=== PATIENT | female | born 1940 | race Caucasian/White ===

== ENCOUNTER 2018-07-06 08:20 | Observation (INO) ==
--- NOTE | 2018-07-06 08:35 | ED ---
HPI General Chief Complaint: Chest Pain Stated Complaint: chest pain Time Seen by Provider: 07/06/18 08:32 Source: patient Mode of arrival: ambulatory Limitations: no limitations History of Present Illness HPI narrative: Patient complains of ongoing intermittent chest pain associated with shortness of breath over the past couple of weeks, patient also has a history of atrial fibrillation. Patient also complains of intermittent dizzy and weakness she is generalized and nonlateralizing.... Primary CARE physicians Dr. Prasanna Olvera needlemaker: dr miranda Past medical history significant for depression, hypercholesterolemia, hypothyroidism, hysterectomy, cervical cancer, atrial fibrillation, hernia repair MD complaint: Reports chest pain STEMI Alert: No Related Data Home Medications Medication Instructions Recorded Confirmed apixaban [Eliquis] 5 mg PO BID 07/06/18 07/06/18 aspirin [Aspir-81] 81 mg PO DAILY 07/06/18 07/06/18 celecoxib 200 mg PO DAILY 07/06/18 07/06/18 flecainide 50 mg PO Q12H 07/06/18 07/06/18 irbesartan 300 mg PO DAILY 07/06/18 07/06/18 levothyroxine 75 mcg PO DAILY 07/06/18 07/06/18 metoprolol tartrate 25 mg PO BID 07/06/18 07/06/18 rosuvastatin 20 mg PO DAILY 07/06/18 07/06/18 sertraline 100 mg PO DAILY 07/06/18 07/06/18 spironolactone 25 mg PO DAILY 07/06/18 07/06/18 Allergies Allergy/AdvReac Type Severity Reaction Status Date / Time lisinopril Allergy Edema, Verified 07/06/18 08:32 Localized Penicillins Allergy Hives Verified 07/06/18 08:32 Review of Systems ROS: all other systems reviewed are negative PMFSH History History Provided By: Patient and Family Member Medical History Medical History Afib (Acute) Cervical cancer (Acute) Depression (Acute) H/O: hysterectomy (Acute) Hypercholesteremia (Acute) Hypothyroid (Acute) Surgical History Surgical History H/O hernia repair (Acute) History of hip replacement (Acute) Social History Social History Substance History: No History of Abuse Second Hand Smoke Exposure: No Smoking Status: Never smoker How Often Do You Have a Drink Containing Alcohol: 2 to 4 times a month Recent Travel in [facility] within the Last 8 Weeks: No Recent Out of Country Travel within the Last 8 Weeks: No Exam Narrative Exam Narrative: GENERAL: Well-nourished, well-developed patient in no apparent distress. SKIN: Warm and dry. HEAD: Atraumatic. Normocephalic. EYES: Pupils equal and round. No scleral icterus. No injection or drainage. ENT: No nasal bleeding or discharge. Mucous membranes pink and moist. NECK: Trachea midline. No JVD. CARDIOVASCULAR: Regular rate but irregularly irregular rhythm. no rubs or gallops RESPIRATORY: No accessory muscle use. Clear to auscultation. Breath sounds equal bilaterally. GASTROINTESTINAL: Abdomen soft, non-tender, nondistended. No rebound or guarding MUSCULOSKELETAL: Extremities without clubbing, cyanosis, or edema. No obvious deformities. NEUROLOGICAL: Awake and alert. No obvious cranial nerve deficits. Motor grossly within normal limits. Five out of 5 muscle strength in the arms and legs. Normal speech. PSYCHIATRIC: Appropriate mood and affect; insight and judgment normal. Course Initial Documented Vital Signs Temperature 98.3 F 07/06/18 08:23 Pulse Rate 81 07/06/18 08:23 Respiratory Rate 22 07/06/18 08:23 Blood Pressure 140/84 07/06/18 08:23 Pulse Oximetry 98 07/06/18 08:23 Last Documented Vital Signs Temperature 98.3 F 07/06/18 08:23 Pulse Rate 68 07/06/18 08:38 Respiratory Rate 24 07/06/18 08:38 Blood Pressure 157/78 H 07/06/18 08:38 Pulse Oximetry 97 07/06/18 08:38 Medical Decision Making MDM Narrative Medical decision making narrative: No leukocytosis, no anemia, no abnormal platelet count, however there is some neutrophilia left shift of 80% Evaluation profile within normal limits, however by history patient is on Eliquis Electrolytes are all within normal limits with the exception of a BUN of 44 creatinine 1.6 So far normal bilirubin and alk phos alkaline phosphatase. Beta natruretic peptide elevated at 1082 consistent with some degree of either cardiomyopathy or cardiomegaly chest x-ray read by Radiologist as negative examination Medical Screen Exam Complete: Yes Emergency Medical Condition: Yes Lab Data Result diagrams: 07/06/18 08:40 07/06/18 08:40 Lab Results 07/06/18 07/06/18 07/06/18 Range/Units 08:40 08:40 08:40 WBC 9.5 (4.0-11.0) th/mm3 RBC 3.87 L (4.00-5.30) mil/mm3 Hgb 12.0 (11.6-15.3) gm/dL Hct 36.1 (35.0-46.0) % MCV 93.3 (80.0-100.0) fL MCH 31.0 (27.0-34.0) pg MCHC 33.2 (32.0-36.0) % RDW 14.1 (11.6-17.2) % Plt Count 295 (150-450) th/mm3 MPV 8.2 (7.0-11.0) fL Neut % (Auto) 79.5 H (16.0-70.0) % Lymph % (Auto) 11.7 (9.0-44.0) % [place] % (Auto) 6.3 (0.0-8.0) % Eos % (Auto) 1.4 (0.0-4.0) % Baso % (Auto) 1.1 (0.0-2.0) % Neut # (Auto) 7.6 (1.8-7.7) th/mm3 Lymph # (Auto) 1.1 (1.0-4.8) th/mm3 [place] # (Auto) 0.6 (0.0-0.9) th/mm3 Eos # (Auto) 0.1 (0.0-0.4) th/mm3 Baso # (Auto) 0.1 (0.0-0.2) th/mm3 WBC Differential . Differential Comment Auto diff final PT 11.0 (9.8-11.6) sec INR 1.1 Ratio APTT 29.6 (23.4-31.7) sec Sodium 140 (136-145) meq/L Potassium 4.2 (3.5-5.1) meq/L Chloride 110 H (98-107) meq/L Carbon Dioxide 21.3 (21.0-32.0) meq/L Anion Gap 9 (5-15) meq/L BUN 44 H (7-18) mg/dL Creatinine 1.60 H (0.50-1.00) mg/dL Estimated GFR 31 L (>89) mL/min Random Glucose 110 H (74-106) mg/dL Calcium 9.0 (8.5-10.1) mg/dL Total Bilirubin 0.4 (0.2-1.0) mg/dL AST 47 H (15-37) U/L ALT 57 H (10-53) U/L Alkaline Phosphatase 113 (45-117) U/L Total Creatine Kinase 50 (26-192) U/L Troponin I Less than 0.02 L (0.02-0.05) ng/mL B-Natriuretic Peptide (0-100) pg/mL Total Protein 7.7 (6.4-8.2) g/dL Albumin 3.5 (3.4-5.0) g/dL 07/06/18 Range/Units 08:40 WBC (4.0-11.0) th/mm3 RBC (4.00-5.30) mil/mm3 Hgb (11.6-15.3) gm/dL Hct (35.0-46.0) % MCV (80.0-100.0) fL MCH (27.0-34.0) pg MCHC (32.0-36.0) % RDW (11.6-17.2) % Plt Count (150-450) th/mm3 MPV (7.0-11.0) fL Neut % (Auto) (16.0-70.0) % Lymph % (Auto) (9.0-44.0) % [place] % (Auto) (0.0-8.0) % Eos % (Auto) (0.0-4.0) % Baso % (Auto) (0.0-2.0) % Neut # (Auto) (1.8-7.7) th/mm3 Lymph # (Auto) (1.0-4.8) th/mm3 [place] # (Auto) (0.0-0.9) th/mm3 Eos # (Auto) (0.0-0.4) th/mm3 Baso # (Auto) (0.0-0.2) th/mm3 WBC Differential Differential Comment PT (9.8-11.6) sec INR Ratio APTT (23.4-31.7) sec Sodium (136-145) meq/L Potassium (3.5-5.1) meq/L Chloride (98-107) meq/L Carbon Dioxide (21.0-32.0) meq/L Anion Gap (5-15) meq/L BUN (7-18) mg/dL Creatinine (0.50-1.00) mg/dL Estimated GFR (>89) mL/min Random Glucose (74-106) mg/dL Calcium (8.5-10.1) mg/dL Total Bilirubin (0.2-1.0) mg/dL AST (15-37) U/L ALT (10-53) U/L Alkaline Phosphatase (45-117) U/L Total Creatine Kinase (26-192) U/L Troponin I (0.02-0.05) ng/mL B-Natriuretic Peptide 1082 H (0-100) pg/mL Total Protein (6.4-8.2) g/dL Albumin (3.4-5.0) g/dL Imaging Data Radiologist's impression: Chest X-Ray 07/06/18 08:36 CONCLUSION: Negative examination. Discharge Plan Discharge Disposition Patient Disposition: 30 Still Patient Discharge Condition Condition: Stable Discharge Details Diagnosis: Acute acalculous cholecystitis Physicians Team ED Provider: Adalid Hightower Primary Care Provider: Prasanna Snyder Rxs /Orders / Referrals /Forms Prescriptions: No Action celecoxib 200 mg Capsule 200 mg PO DAILY RF: 0 sertraline 100 mg Tablet 100 mg PO DAILY RF: 0 aspirin [Aspir-81] 81 mg Tablet,Delayed Release (Dr/Ec) 81 mg PO DAILY RF: 0 spironolactone 25 mg Tablet 25 mg PO DAILY RF: 0 levothyroxine 75 mcg Tablet 75 mcg PO DAILY RF: 0 flecainide 50 mg Tablet 50 mg PO Q12H RF: 0 irbesartan 300 mg Tablet 300 mg PO DAILY RF: 0 rosuvastatin 20 mg Tablet 20 mg PO DAILY RF: 0 metoprolol tartrate 25 mg Tablet 25 mg PO BID RF: 0 apixaban [Eliquis] 5 mg Tablet 5 mg PO BID RF: 0 Discharge Instructions Patient Printed Instructions: Chest Pain (ED) Status ED Status: With Doctor
[2018-07-06 08:53] LABS: Baso # (Auto) 0.1 th/mm3 (0.0-0.2); Baso % (Auto) 1.1 % (0.0-2.0); Eos # (Auto) 0.1 th/mm3 (0.0-0.4); Eos % (Auto) 1.4 % (0.0-4.0); Hematocrit 36.1 % (35.0-46.0); Lymph # (Auto) 1.1 th/mm3 (1.0-4.8); Lymph % (Auto) 11.7 % (9.0-44.0); Mean Corpuscular HGB Conc 33.2 % (32.0-36.0); Mean Corpuscular Volume 93.3 fL (80.0-100.0); Mean Platelet Volume 8.2 fL (7.0-11.0); Mono # (Auto) 0.6 th/mm3 (0.0-0.9); Mono % (Auto) 6.3 % (0.0-8.0); Neut # (Auto) 7.6 th/mm3 (1.8-7.7); Neut % (Auto) 79.5 % (16.0-70.0); Platelet Count 295 th/mm3 (150-450); Red Blood Count 3.87 mil/mm3 (4.00-5.30); Red Cell Distribution Width 14.1 % (11.6-17.2); White Blood Count 9.5 th/mm3 (4.0-11.0)
[2018-07-06 09:03] LABS: Activated Partial Thrombo Time 29.6 sec (23.4-31.7); INR 1.1 Ratio
--- NOTE | 2018-07-06 09:03 | XR ---
EXAM DATE: 07/06/2018 9:00 AM EST AGE/SEX: 78 years / Female INDICATIONS: Bilateral chest pain. CLINICAL DATA: This is the patient's initial encounter. Patient reports that signs and symptoms have been present for 1 day and indicates a pain score of 5/10. MEDICAL/SURGICAL HISTORY: . Atrial fibrillation. None. COMPARISON: No prior exams available for comparison. FINDINGS: A single AP view of the chest demonstrates the lungs to be symmetrically aerated without evidence of mass, infiltrate or effusion. The cardiomediastinal contours are unremarkable. Osseous structures a re intact. CONCLUSION: Negative examination. Electronically signed by: Lindsay Matamoros MD 07/06/2018 9:02 AM EST
[2018-07-06 09:12] LABS: Alanine Aminotransferase 57 U/L (10-53); Albumin 3.5 g/dL (3.4-5.0); Anion Gap 9 meq/L (5-15); Aspartate Aminotransferase 47 U/L (15-37); Blood Urea Nitrogen 44 mg/dL (7-18); Carbon Dioxide 21.3 meq/L (21.0-32.0); Chloride 110 meq/L (98-107); Glomerular Filtration Rate 31 mL/min (>89); Glucose,Random 110 mg/dL (74-106); Potassium 4.2 meq/L (3.5-5.1); Sodium 140 meq/L (136-145)
[2018-07-06 09:16] LABS: Alkaline Phosphatase 113 U/L (45-117); Total Protein 7.7 g/dL (6.4-8.2)
[2018-07-06 09:17] LABS: Creatine Kinase 50 U/L (26-192)
[2018-07-06] MEDS ORDERED: Levofloxacin 250 mg Premix Inj 250 MG/50 ML PIGGYBACK IV.SIG ONE (09:34)
--- NOTE | 2018-07-06 09:43 | US ---
EXAM DATE: 07/06/2018 9:36 AM EST AGE/SEX: 78 years / Female INDICATIONS: Right upper quadrant pain. CLINICAL DATA: This is the patient's initial encounter. Patient reports that signs and symptoms have been present for 1 week and indicates a pain score of 7/10. MEDICAL/SURGICAL HISTORY: Carcinoma, cervical. Hypercholesterolemia. Hypothyroidism. Atrial fibrillation. Hysterectomy. Hernia repair. Hip replacement. COMPARISON: [facility], CT ABDOMEN AND PELVIS W/O CONTRAST, 10/22/2017. . MEASUREMENTS: Liver:__ 16.1 cm. Common Bile Duct:__ 3mm. FINDINGS: Liver: Normal echotexture without focal lesion or ductal dilatation. Portal Vein: Hepatopedal flow seen in portal vein. Common Duct: No intraluminal mass or stone visualized. Gallbladder: The gallbladder is distended with fluid and demonstrates circumferential wall thickenin g measuring up to 9 mm in thickness. There is a small amount of pericholecystic fluid present. No sto summer are identified within the lumen. Pancreas: The visualized portions are within normal limits Right Kidney: Right kidney appears somewhat small in size measuring 7.7 x 4.3 x 4.5 cm. The cortex a ppears grossly normal in thickness and echogenicity. No evidence of mass, stones or hydronephrosis. Other: None. CONCLUSION: 1. Abnormal appearance of the gallbladder with wall thickening, pericholecystic fluid. No evidence o f stones. Concern is for possible acalculous cholecystitis. Electronically signed by: Lindsay Matamoros MD 07/06/2018 9:42 AM EST
[2018-07-06] MEDS ORDERED: Sod Chloride 0.9% Inj 1,000 ML IV.SIG ONE (10:10)
[2018-07-06] MEDS ORDERED: Acetaminophen 325 MG Tablet PO PRN (10:19)
[2018-07-06] MEDS ORDERED: Bisacodyl 10 MG Supp RECTAL PRN (10:19)
[2018-07-06] MEDS ORDERED: Morphine Sulfate Inj 2 MG/ML Vial IV.PUSH PRN (10:28)
[2018-07-06] MEDS ORDERED: Naloxone Inj 0.4 MG/ML Vial IV.PUSH PRN (10:28)
[2018-07-06] MEDS ORDERED: Morphine Inj 4 MG/ML Vial IV.PUSH PRN (10:28)
--- NOTE | 2018-07-06 11:08 | CT ---
EXAM DATE: 07/06/2018 11:05 AM EST AGE/SEX: 78 years / Female INDICATIONS: Dizziness, Weak CLINICAL DATA: This is the patient's initial encounter. Patient reports that signs and symptoms have been present for 2 weeks and indicates a pain score of 6/10. MEDICAL/SURGICAL HISTORY: Carcinoma, cervical. Hypothyroidism. Atrial Fibrillation Hysterectomy. Hernia repair RADIATION DOSE: 56.35 CTDI (mGy) COMPARISON: No prior exams available for comparison. TECHNIQUE: CT of the head without contrast. Using automated exposure control and adjustment of the mA and/or kV according to patient size, radiation dose was kept as low as reasonably achievable to ob tain optimal diagnostic quality images. DICOM format image data is available electronically for revi ew and comparison. FINDINGS: Cerebrum: The ventricles are normal for age. No evidence of midline shift, mass lesion, hemorrhage or acute infarction. No extraaxial fluid collections are seen. Posterior Fossa: The cerebellum and brainstem are intact. The 4th ventricle is midline. The cerebe llopontine angle is unremarkable. Extracranial: The visualized portion of the orbits is intact. Extensive atherosclerosis identified w ithin the vertebral arteries. Skull: The calvaria is intact. No evidence of skull fracture. CONCLUSION: 1. Age-related changes of the brain without evidence of acute abnormality. There is extensive athero sclerosis identified within the vertebral arteries. . Electronically signed by: Lindsay Matamoros MD 07/06/2018 11:07 AM EST
[2018-07-06] MEDS ORDERED: Metoprolol Tartrate 25 MG Tablet PO SCH (13:00)
--- NOTE | 2018-07-06 13:04 | P.HP ---
History of Present Illness Primary Care Physician: Prasanna Snyder MD Chief Complaint: Abdominal pain History of Present Illness: This is 78 year old female with a history of recent A. fib on Eliquis, hypertension, hyperlipidemia, hypothyroidism, depression and cervical cancer status post surgery. She presents to the emergency room complaining of abdominal pain for the past 2 weeks. She describes an intermittent exertional upper abdominal sharp pain associated with shortness of breath, dizziness, nausea and generalized weakness. She was evaluated by her roving winder and was found to have A. fib and was started on Eliquis, metoprolol and flecainide. Underwent echocardiogram which was reportedly unremarkable. Patient was told she might need stress test and cardioversion. Symptoms persisted prompting ER visit. Ultrasound shows abnormal appearance of the gallbladder with wall thickening and pericholecystic fluid. Head CT without acute findings. Chest x- ray independently reviewed with no acute cardiopulmonary disease. EKG independently reviewed with atrial fibrillation with controlled ventricular response. Review of Systems All other systems reviewed negative except as stated in HPI PMF - History History Provided By: Patient, Family Member - Medical History Medical History: Medical History (Last Reviewed 07/06/18 @ 14:15 by Edmundo Ragsdale MD) Afib Cervical cancer Depression H/O: hysterectomy Hypercholesteremia Hypothyroid - Surgical History Surgical History: Surgical History (Last Reviewed 07/06/18 @ 14:15 by Edmundo Ragsdale MD) H/O hernia repair History of hip replacement - Family History Family History: Family History (Last Updated 07/06/18 @ 14:15 by Edmundo Ragsdale MD) Other Family history of acute myocardial infarction - Social History I have reviewed the patient's Social History: Yes - Tobacco History Second Hand Smoke Exposure: No Smoking Status: Never smoker - Alcohol History How Often Do You Have a Drink Containing Alcohol: 2 to 4 times a month - Substance Use History Substance History: No History of Abuse - Travel History Recent Travel in the [place] Within the Last 8 Weeks: No Recent Travel Out of the Country Within the Last 8 Weeks: No - Immunization History Tetanus Immunization: <5 Years Medications and Allergies Active Medications: Active Medications Acetaminophen (Tylenol) 650 mg PO Q4H PRN PRN Reason: Temp > 100.4 Bisacodyl (Dulcolax Supp) 10 mg RECTAL DAILY PRN PRN Reason: SEVERE CONSITIPATION Metronidazole/Sodium Chloride (Flagyl 500 Mg Inj) 100 mls @ 100 mls/hr IV.SIG Q6H [facility] Lactated Ringer's (Lr 1000 Ml Inj) 1,000 mls @ 42 mls/hr IV.CONT .[id number] RAF Levofloxacin/Dextrose (Levaquin 500 Mg Premix Inj) 500 mg in 100 mls @ 100 mls/ hr IV.SIG Q24H RAF Lactulose (Lactulose Liq) 30 ml PO DAILY PRN PRN Reason: SEVERE CONSITIPATION Levothyroxine Sodium (Synthroid) 75 mcg PO DAILY [facility] Metoprolol Tartrate (Lopressor) 25 mg PO BID RAF Morphine Sulfate (Morphine Inj) 1 mg IV.PUSH Q3H PRN PRN Reason: PAIN 3-5; IF UABLE TO TAKE PO Morphine Sulfate (Morphine Inj) 2 mg IV.PUSH Q3H PRN PRN Reason: PAIN 6-10;IF UNABLE TO TAKE PO Morphine Sulfate (Morphine Inj) 2 mg IV.PUSH Q3H PRN PRN Reason: BREAKTHROUGH PAIN Naloxone HCl (Narcan Inj) 0.4 mg IV.PUSH UNSCH PRN PRN Reason: SEE LABEL COMMENTS Non-Formulary Medication (Flecainide [Flecainide]) 50 mg PO Q12H [facility] Non-Formulary Medication (Irbesartan [Irbesartan]) 300 mg PO DAILY [facility] Ondansetron HCl (Zofran Inj) 4 mg IV.PUSH Q6H PRN PRN Reason: NAUSEA OR VOMITING Senna/Docusate Sodium (Nichole-Colace) 1 tab PO BID [facility] Sennosides (Senokot) 17.2 mg PO Q12H PRN PRN Reason: Moderate Constipation Sodium Chloride (Ns Flush) 2 ml IV.FLUSH UNSCH PRN PRN Reason: FLUSH AFTER USING IV ACCESS Spironolactone (Aldactone) 25 mg PO DAILY [facility] Allergies Allergy/AdvReac Type Severity Reaction Status Date / Time lisinopril Allergy Edema, Verified 07/06/18 08:32 Localized Penicillins Allergy Hives Verified 07/06/18 08:32 Home Medications Medication Instructions Recorded Confirmed Type apixaban [Eliquis] 5 mg PO BID 07/06/18 07/06/18 History aspirin [Aspir-81] 81 mg PO DAILY 07/06/18 07/06/18 History celecoxib 200 mg PO DAILY 07/06/18 07/06/18 History flecainide 50 mg PO Q12H 07/06/18 07/06/18 History irbesartan 300 mg PO DAILY 07/06/18 07/06/18 History levothyroxine 75 mcg PO DAILY 07/06/18 07/06/18 History metoprolol tartrate 25 mg PO BID 07/06/18 07/06/18 History rosuvastatin 20 mg PO DAILY 07/06/18 07/06/18 History sertraline 100 mg PO DAILY 07/06/18 07/06/18 History spironolactone 25 mg PO DAILY 07/06/18 07/06/18 History Exam Vital signs: Vital Signs 07/06/18 08:23 07/06/18 08:38 07/06/18 10:13 Temperature 98.3 F Pulse Rate 81 68 83 Respiratory Rate 22 24 21 Blood Pressure 140/84 157/78 H 147/109 H Pulse Oximetry 98 97 96 07/06/18 10:40 Temperature Pulse Rate Respiratory Rate Blood Pressure Pulse Oximetry 93 L Intake & Output 07/05/18 07/06/18 07/06/18 18:59 06:59 18:59 Intake Total 150 / 150 Balance 150 / 150 Weight 78.925 kg Intake: IV 150 / 150 Levaquin 250 mg Premix Inj 250 50 / 50 mg In 50 ml @ 50 mls/hr IV.SIG ONCE ONE Rx#:[id number] Flagyl 500 MG Inj 100 ML @ 100 100 / 100 mls/hr IV.SIG ONCE ONE Rx#: [id number] Narrative: GENERAL: Well-developed, well-nourished in no distress SKIN: Warm and dry. HEAD: Atraumatic. Normocephalic. EYES: Pupils equal and round. No scleral icterus. No injection or drainage. ENT: No nasal bleeding or discharge. Mucous membranes pink and moist. NECK: Trachea midline. No JVD. CARDIOVASCULAR: Irregularly irregular RESPIRATORY: No accessory muscle use. Clear to auscultation. Breath sounds equal bilaterally. GASTROINTESTINAL: Abdomen soft, tender upper abdominal especially right upper quadrant. Nondistended. MUSCULOSKELETAL: Extremities without clubbing, cyanosis but with trace bilateral lower extremity pitting edema. No obvious deformities. NEUROLOGICAL: Awake and alert. No obvious cranial nerve deficits. Motor grossly within normal limits. Five out of 5 muscle strength in the arms and legs. Normal speech. PSYCHIATRIC: Appropriate mood and affect; insight and judgment normal. Results - Labs CBC & Chem 7: 07/06/18 08:40 07/06/18 08:40 Labs: Laboratory Results - last 24 hr 07/06/18 07/06/18 07/06/18 08:40 08:40 08:40 WBC 9.5 RBC 3.87 L Hgb 12.0 Hct 36.1 MCV 93.3 MCH 31.0 MCHC 33.2 RDW 14.1 Plt Count 295 MPV 8.2 Neut % (Auto) 79.5 H Lymph % (Auto) 11.7 [place] % (Auto) 6.3 Eos % (Auto) 1.4 Baso % (Auto) 1.1 Neut # (Auto) 7.6 Lymph # (Auto) 1.1 [place] # (Auto) 0.6 Eos # (Auto) 0.1 Baso # (Auto) 0.1 WBC Differential . Differential Comment Auto diff final PT 11.0 INR 1.1 APTT 29.6 Sodium 140 Potassium 4.2 Chloride 110 H Carbon Dioxide 21.3 Anion Gap 9 BUN 44 H Creatinine 1.60 H Estimated GFR 31 L Random Glucose 110 H Calcium 9.0 Total Bilirubin 0.4 AST 47 H ALT 57 H Alkaline Phosphatase 113 Total Creatine Kinase 50 Troponin I Less than 0.02 L B-Natriuretic Peptide Total Protein 7.7 Albumin 3.5 07/06/18 08:40 WBC RBC Hgb Hct MCV MCH MCHC RDW Plt Count MPV Neut % (Auto) Lymph % (Auto) [place] % (Auto) Eos % (Auto) Baso % (Auto) Neut # (Auto) Lymph # (Auto) [place] # (Auto) Eos # (Auto) Baso # (Auto) WBC Differential Differential Comment PT INR APTT Sodium Potassium Chloride Carbon Dioxide Anion Gap BUN Creatinine Estimated GFR Random Glucose Calcium Total Bilirubin AST ALT Alkaline Phosphatase Total Creatine Kinase Troponin I B-Natriuretic Peptide 1082 H Total Protein Albumin - Imaging Impressions Head CT 07/06/18 08:33 CONCLUSION: 1. Age-related changes of the brain without evidence of acute abnormality. There is extensive atherosclerosis identified within the vertebral arteries. . Chest X-Ray 07/06/18 08:36 CONCLUSION: Negative examination. Gallbladder Ultrasound 07/06/18 08:48 CONCLUSION: 1. Abnormal appearance of the gallbladder with wall thickening, pericholecystic fluid. No evidence of stones. Concern is for possible acalculous cholecystitis. Caprini VTE Risk Assessment Caprini VTE Risk Assessment: Moderate/High Risk (score >= 2) Caprini Risk Assessment Model: Point Value = 1 Point Value = 2 Point Value = 3 Point Value = 5 Age 41-60 Minor surgery BMI > 25 kg/m2 Swollen legs Varicose veins or History of unexplained or recurrent spontaneous Oral contraceptives or hormone replacement Sepsis (< 1 month) Serious lung disease, including pneumonia (< 1 month) Abnormal pulmonary function Acute myocardial infarction Congestive heart failure (< 1 month) History of inflammatory bowel disease Medical patient at bed rest Age 61-74 Arthroscopic surgery Major open surgery (> 45 min) Laparoscopic surgery (> 45 min) Malignancy Confined to bed (> 72 hours) Immobilizing plaster cast Central venous access Age >= 75 History of VTE Family history of VTE Factor V Leiden Prothrombin [id number] Lupus anticoagulant Anticardiolipin antibodies Elevated serum homocysteine Heparin-induced thrombocytopenia Other congenital or acquired thrombophilia Stroke (< 1 month) Elective arthroplasty Hip, pelvis, or leg fracture Acute spinal cord injury (< 1 month) Prophylaxis Regimen: Total Risk Factor Score Risk Level Prophylaxis Regimen 0-1 Low Early ambulation 2 Moderate Order ONE of the following: *Sequential Compression Device (SCD) *Heparin 5000 units SQ BID 3-4 Higher Order ONE of the following medications: *Heparin 5000 units SQ TID *Enoxaparin/Lovenox 40 mg SQ daily (WT < 150 kg, CrCl > 30 mL/min) *Enoxaparin/Lovenox 30 mg SQ daily (WT < 150 kg, CrCl > 10-29 mL/min) *Enoxaparin/Lovenox 30 mg SQ BID (WT < 150 kg, CrCl > 30 mL/min) AND/OR *Sequential Compression Device (SCD) 5 or more Highest Order ONE of the following medications: *Heparin 5000 units SQ TID (Preferred with Epidurals) *Enoxaparin/Lovenox 40 mg SQ daily (WT < 150 kg, CrCl > 30 mL/min) *Enoxaparin/Lovenox 30 mg SQ daily (WT < 150 kg, CrCl > 10-29 mL/min) *Enoxaparin/Lovenox 30 mg SQ BID (WT < 150 kg, CrCl > 30 mL/min) AND *Sequential Compression Device (SCD) Assessment and Plan - Plan This is 78 year old female with a history of recent A. fib on Eliquis, hypertension, hyperlipidemia, hypothyroidism, depression and cervical cancer status post surgery. She presents to the emergency room complaining of abdominal pain for the past 2 weeks associated with shortness of breath, dizziness, nausea and generalized weakness. She was evaluated by her roving winder and was found to have A. fib and was started on Eliquis, metoprolol and flecainide. Underwent echocardiogram which was reportedly unremarkable. Patient was told she might need stress test and cardioversion. Symptoms persisted prompting ER visit. Ultrasound shows abnormal appearance of the gallbladder with wall thickening and pericholecystic fluid. Acalculus cholecystitis. Patient will be hospitalized for further evaluation and treatment. Consult general surgery. Hold Eliquis and aspirin. Continue IV Levaquin, metronidazole and pain management with IV morphine counseled regarding narcotics. Acute kidney injury secondary to dehydration. Nonoliguric. Obtain urinalysis and start gentle IV hydration. Avoid nephrotoxins hold Aldactone. Elevated BNP. No evidence of heart failure. Chest x-ray without acute cardiopulmonary disease. Obtain results of echocardiogram done from patient's roving winder Uncontrolled hypertension. Resume home medications with as needed IV hydralazine and clonidine. DVT prophylaxis with SCD and early ambulation. Discharge Planning: Per GS
[2018-07-06] MEDS ORDERED: hydrALAZINE HCl Inj 20 MG/ML Vial IV.PUSH PRN (15:00)
[2018-07-06 15:32] LABS: Bacteria,Urine Many /hpf; Bilirubin,Urine Negative (Negative); Clarity,Urine Hazy (Clear); Color,Urine Yellow (Yellw/Straw); Glucose,Urine (UA) Negative (Negative); Leukocyte Esterase,Urine Small (Negative); Mucus,Urine Few /lpf (Occasional); Nitrite,Urine Negative (Negative); Specific Gravity,Urine 1.018 (1.002-1.035); Squamous Epithelial Cell,Urine 2 /hpf (0-5)
[2018-07-06] MEDS: Flecainide 100 MG Tablet PO SCH (15:33)
--- NOTE | 2018-07-06 16:01 | ECG ---
Date Performed: 07/06/2018 Time Performed: 08:55:35 PTAGE: 78 years EKG: ATRIAL FIBRILLATION ABNORMAL RHYTHM ECG NO PREVIOUS TRACING DOCTOR: Rodo Mullins Interpretating Date/Time 07/06/2018 16:01:09
[2018-07-06] MEDS: Metoprolol Tartrate 25 MG Tablet PO SCH (17:19)
--- NOTE | 2018-07-06 17:30 | MB ---
cc: Dave Lange MD, Jose R MD McDonnell,Navarro Ruiz MD, DO DATE: 07/06/2018 REFERRING PHYSICIAN: Edmundo Ragsdale MD PRIMARY CARE PHYSICIAN: Prasanna Degroot MD PRIMARY CHILD CAREGIVER PRIVATE HOME: Navarro Sharpe MD DATE OF CONSULTATION: 07/06/2018 REASON FOR CONSULTATION: Atrial fibrillation. HISTORY OF PRESENT ILLNESS: Ms. Blood is a 78-year-old white female who was recently diagnosed with atrial fibrillation and placed on flecainide, metoprolol and Eliquis as an outpatient. She has been experiencing intermittent episodes of upper abdominal and epigastric discomfort. She has also had some intermittent palpitations and chest pressure, which has been going on for a few weeks for which she underwent a cardiology evaluation and was found to be in atrial fibrillation. She denies any associated shortness of breath, but has had some nausea, no vomiting. No diarrhea. Her initial EKG here shows atrial fibrillation with a controlled ventricular response and initial troponin I was negative, but an ultrasound of the gallbladder showed wall thickening and pericholecystic fluid, which brought up concerns about acalculous cholecystitis, which is undergoing workup. She is lying in bed and has some mild to moderate upper abdominal discomfort at this time. She denies any chest pain. She says she has been taking her medications as directed. PAST MEDICAL HISTORY: As mentioned. In addition, she has had hypertension, hypothyroidism, atrial fibrillation, cervical cancer, depression, hypercholesterolemia. Denies history of myocardial infarction, heart failure, stroke, TIA, liver or kidney disease. PAST SURGICAL HISTORY: Hernia repair, hip replacement. ALLERGIES: LISINOPRIL AND PENICILLIN. CURRENT MEDICATIONS: 1. Synthroid 75 mcg p.o. daily. 2. Levaquin 500 mg IV daily. 3. Lopressor 25 mg p.o. b.i.d. 4. Cozaar 100 mg daily. 5. Morphine IV 1-2 mg p.r.n. pain. 6. Zofran 4 mg IV every 6 hours p.r.n. 7. Nichole-Colace 1 tab b.i.d. 8. Spironolactone 25 mg p.o. daily. FAMILY HISTORY: Acute myocardial infarction and heart disease in the family. SOCIAL HISTORY: The patient denies tobacco, alcohol or illicit drug use now or in the past. REVIEW OF SYSTEMS: She denies lower extremity edema or claudication. Denies fever, chills, night sweats, nausea, vomiting, diarrhea. Denies lightheadedness or syncopal episodes. Except for that mentioned in the HPI, a complete 12-point review of systems is otherwise negative. PHYSICAL EXAMINATION: GENERAL: Reveals an obese white female lying in bed in no significant distress. VITAL SIGNS: Blood pressure 159/97 mmHg, heart rate is 83 and irregular, respiratory rate 20, temperature 97.8, oxygen saturation 96% on room air. HEENT: Head is normocephalic and atraumatic. Pupils equal, round, reactive to light. Sclerae are anicteric. Extraocular movements intact. NECK: Supple. There is no adenopathy. There is no jugular venous distention at 45 degrees. Carotid upstrokes normal. No bruits. Thyroid exam is normal. LUNGS: Clear. HEART: PMI is not displaced. S1, S2 normal. No murmurs, gallops, clicks or rubs. ABDOMEN: Obese. Bowel sounds present. Soft, moderate tenderness across the abdomen, especially in the epigastrium and right upper quadrant. No rebound. No masses or bruits. EXTREMITIES: No cyanosis, clubbing or edema. Perfusion adequate. NEUROLOGIC: Nonfocal. DIAGNOSTIC DATA: Chest x-ray: Negative exam, clear lungs. EKG from this morning shows atrial fibrillation, no significant ST abnormalities abnormal EKG, QTc 412 milliseconds. LABORATORY DATA: Sodium 140, potassium 4.2, chloride 110, CO2 21.3, BUN 44, creatinine 1.6, calcium 9.0. AST 47, ALT 57, CPK 50. Troponin I less than 0.02. BNP 1082. CBC: White count 9.5, hemoglobin 12.0, hematocrit 36.1, platelet count 295,000. Gallbladder ultrasound: As noted above, abnormal appearance of the gallbladder with wall thickening, pericholecystic fluid. Concern for possible acalculous cholecystitis. IMPRESSION: 1. Persistent atrial fibrillation, rate reasonably well controlled. 2. Hypertensive heart disease, needs more aggressive control. 3. Abdominal epigastric discomfort and atypical chest discomfort with findings suspicious for acute acalculous cholecystitis. 4. Hypothyroidism, on replacement. 5. Obesity. RECOMMENDATIONS: The patient's anticoagulation therapy, Eliquis, has been on hold, her last dose was this morning for anticipated need for procedures or surgery. BP needs better control. Increase metoprolol to 25 mg PO q8h for improved BP and HR control. The current symptoms appears to be most likely related to her gallbladder disease and would proceed with further workup and treatment of that at this time. Dr. Sharpe will follow up tomorrow for reevaluation of her and any additional recommendations. I have discussed the above plans with the patient and the nurse staff. Thank you for allowing us to participate in the care of this patient. We will follow her with you. MD JANNET Zaragoza/patti , 04:38 PM , 04:51 PM RUBIO
[2018-07-06] MEDS: Senna/Docusate Sodium 8.6/50 MG Tablet PO SCH (21:37)
[2018-07-06] MEDS: Melatonin 5 MG Tablet PO PRN (22:23)
--- NOTE | 2018-07-07 00:28 | MB ---
cc: Rocky Hopson MD DATE: 07/06/2018 REASON FOR CONSULTATION: Acute cholecystitis. REFERRING PHYSICIAN: Dr. Edmundo Ragsdale HISTORY OF PRESENT ILLNESS: The patient is a 78-year-old female who presents with onset of epigastric right-sided abdominal pain. The patient states the pain has been intermittent for the past several weeks and continued to get worse within the last week. She has noted no real specific relation to food. She states the pain was sharp 8 and 9/10 at its worst, currently a 5/10. She says it is worse with movement, better with lying still. She has several medical issues including atrial fibrillation on Eliquis. She further denied nausea, vomiting, fevers or chills, diarrhea or constipation. She came to the emergency department for further evaluation including ultrasound showing thickened gallbladder wall, slight elevation of AST, ALT 47 and 57 respectively. Leukocytosis was negative. WBC of 9.5. Surgery was consulted. PAST MEDICAL HISTORY: Hypertension, hypothyroidism, atrial fibrillation, cervical cancer, depression and hypercholesteremia. PAST SURGICAL HISTORY: Hip surgery, hernia surgery. ALLERGIES: LISINOPRIL AND PENICILLIN. MEDICATIONS: See EMR, Eliquis. FAMILY HISTORY: PR and coronary artery disease with father. SOCIAL HISTORY: Denies smoking, ETOH or IVDA. REVIEW OF SYSTEMS: GENERAL: Denies fevers, chills. HEENT: Denies eye pain, ear pain. NECK: Denies swelling or pain. LUNGS: Denies cough or wheeze. HEART: Denies palpitations or chest pain, atrial fibrillation. ABDOMEN: Complains of abdominal pain. Denies vomiting. GENITOURINARY: Denies dysuria, hematuria. ENDOCRINE: No polyuria, polydipsia and taken. INTEGUMENT: Denies any mass or lesion. PSYCHIATRIC: Denies any change in mood or sensorium. PHYSICAL EXAMINATION: VITAL SIGNS: Temperature 97.8, respirations 20, pulse 83, blood pressure 156/97, saturation 96%. HEENT: Pupils equal, round, reactive. NECK: Supple. Trachea midline. LUNGS: Clear to auscultation. HEART: S1, S2. No murmur. ABDOMEN: Soft, positive tenderness to palpation in the epigastric and right upper quadrant area. No rebound, no guarding. EXTREMITIES: Warm and well perfused, no edema. NEUROLOGIC: GCS of 15. 5/5 motor in all extremities. LABORATORY AND DIAGNOSTIC DATA: WBC 9.5, hemoglobin 12, hematocrit 36.1, platelets 295. Sodium 140, potassium 4.2, chloride 110, CO2 21.3, BUN 44, creatinine 1.6, calcium 9, AST 47, ALT 57, Total bilirubin normal. Gallbladder ultrasound reviewed by myself showing thickened gallbladder wall, pericholecystic fluid. No evidence of stones. ASSESSMENT: 1. The patient is a 78-year-old female who presents with acute onset abdominal pain. Ultrasound concerning for acute cholecystitis. 2. Multiple medical issues including atrial fibrillation on Eliquis. PLAN: After a full workup, the patient with the above noted issues. At this point, the patient appears to have acute cholecystitis. We will recommend IV antibiotics. The patient can have a clear diet. The patient will need operative intervention. Discussed with the patient in detail. Discussed first evaluation by cardiology for cardiology clearance. The patient had Eliquis this morning. We will recommend several days off Eliquis. We will plan for operative intervention some sometime this week. MD SHIRAZ Hodge/cady , 10:51 PM , 10:59 PM
[2018-07-07] MEDS: Flecainide 100 MG Tablet PO SCH ×2 (03:37→15:32)
[2018-07-07] MEDS: Levothyroxine 75 MCG Tablet PO SCH (05:29)
[2018-07-07 06:18] LABS: Baso # (Auto) 0.1 th/mm3 (0.0-0.2); Baso % (Auto) 0.9 % (0.0-2.0); Eos # (Auto) 0.1 th/mm3 (0.0-0.4); Eos % (Auto) 2.1 % (0.0-4.0); Hematocrit 34.1 % (35.0-46.0); Hemoglobin 11.3 gm/dL (11.6-15.3); Lymph # (Auto) 1.2 th/mm3 (1.0-4.8); Lymph % (Auto) 18.6 % (9.0-44.0); Mean Corpuscular HGB Conc 33.1 % (32.0-36.0); Mean Corpuscular Volume 93.9 fL (80.0-100.0); Mean Platelet Volume 8.5 fL (7.0-11.0); Mono # (Auto) 0.5 th/mm3 (0.0-0.9); Mono % (Auto) 7.9 % (0.0-8.0); Neut # (Auto) 4.6 th/mm3 (1.8-7.7); Neut % (Auto) 70.5 % (16.0-70.0); Platelet Count 237 th/mm3 (150-450); Red Blood Count 3.64 mil/mm3 (4.00-5.30); Red Cell Distribution Width 14.1 % (11.6-17.2); White Blood Count 6.6 th/mm3 (4.0-11.0)
[2018-07-07 06:37] LABS: Alanine Aminotransferase 43 U/L (10-53); Albumin 3.2 g/dL (3.4-5.0); Anion Gap 9 meq/L (5-15); Aspartate Aminotransferase 26 U/L (15-37); Blood Urea Nitrogen 37 mg/dL (7-18); Calcium 8.7 mg/dL (8.5-10.1); Carbon Dioxide 19.7 meq/L (21.0-32.0); Chloride 111 meq/L (98-107); Glomerular Filtration Rate 41 mL/min (>89); Glucose,Random 97 mg/dL (74-106); Sodium 140 meq/L (136-145)
[2018-07-07 06:40] LABS: Alkaline Phosphatase 98 U/L (45-117); Total Protein 6.9 g/dL (6.4-8.2)
[2018-07-07] MEDS ORDERED: Spironolactone 25 MG Tablet PO SCH (09:00)
[2018-07-07] MEDS: Levofloxacin 500 mg Premix Inj 500 MG/100 ML PIGGYBACK IV.SIG SCH (09:25)
[2018-07-07] MEDS: Senna/Docusate Sodium 8.6/50 MG Tablet PO SCH ×2 (09:25→21:46)
[2018-07-07] MEDS: Metoprolol Tartrate 25 MG Tablet PO SCH ×3 (09:25→17:48)
[2018-07-07] MEDS ORDERED: Levofloxacin 500 mg Premix Inj 500 MG/100 ML PIGGYBACK IV.SIG SCH (10:27)
--- NOTE | 2018-07-07 10:28 | P.PNIM ---
Subjective Interval history: She reports some vague left-sided chest pressure and shortness of breath with exertion, however says this appears to be associated with rapid heart rate at those times. She reports continued right upper quadrant tenderness. Physical Exam Vital signs: Vital Signs 07/06/18 10:40 07/06/18 14:26 07/06/18 16:00 Temperature 97.8 F 97.1 F L Pulse Rate 96 H Respiratory Rate 20 20 Blood Pressure 159/97 H 137/87 Pulse Oximetry 93 L 95 07/06/18 16:53 07/06/18 20:00 07/07/18 00:00 Temperature 98.0 F 97.1 F L Pulse Rate 83 81 90 Respiratory Rate 18 18 Blood Pressure 135/83 148/91 H Pulse Oximetry 93 L 94 L 07/07/18 04:00 07/07/18 08:00 Temperature 97.2 F L 97.2 F L Pulse Rate 92 H 84 Respiratory Rate 18 16 Blood Pressure 145/105 H 165/98 H Pulse Oximetry 95 96 Intake & Output 07/06/18 07/07/18 07/07/18 18:59 06:59 18:59 Intake Total 1400 / 1400 1100 / 1100 100 / 100 Balance 1400 / 1400 1100 / 1100 100 / 100 Weight 78.925 kg 87.2 kg Intake: IV 800 / 800 200 / 200 100 / 100 Levaquin 250 mg Premix Inj 250 50 / 50 mg In 50 ml @ 50 mls/hr IV.SIG ONCE ONE Rx#:[id number] Levaquin 500 mg Premix Inj 500 100 / 100 mg In 100 ml @ 100 mls/hr IV. SIG Q24H [facility] Rx#:[id number] NS Inj 1,000 ML @ Wide Open IV. 550 / 550 SIG BOLUS ONE Rx#:[id number] Flagyl 500 MG Inj 100 ML @ 100 200 / 200 200 / 200 mls/hr IV.SIG Q6H [facility] Rx#: [id number] Oral 600 / 600 900 / 900 Other: # Voids 2 3 Date of Last Bowel Movement 07/06/18 07/06/18 Narrative: GENERAL: Patient lying in bed. Appears comfortable but anxious. SKIN: Warm and dry. HEAD: Normocephalic. EYES: No scleral icterus. No injection or drainage. NECK: Supple, trachea midline. No JVD. CARDIOVASCULAR: Irregularly irregular rhythm without murmurs, gallops, or rubs. Normal rate RESPIRATORY: Breath sounds equal bilaterally. No accessory muscle use. GASTROINTESTINAL: Abdomen soft, non-tender, nondistended. MUSCULOSKELETAL: No cyanosis, or edema. BACK: Nontender without obvious deformity. No CVA tenderness. Results - Labs CBC & Chem 7: 07/07/18 05:35 07/07/18 05:35 Laboratory Results - last 24 hr 07/06/18 07/07/18 07/07/18 14:15 05:35 05:35 WBC 6.6 RBC 3.64 L Hgb 11.3 L Hct 34.1 L MCV 93.9 MCH 31.0 MCHC 33.1 RDW 14.1 Plt Count 237 MPV 8.5 Neut % (Auto) 70.5 H Lymph % (Auto) 18.6 [place] % (Auto) 7.9 Eos % (Auto) 2.1 Baso % (Auto) 0.9 Neut # (Auto) 4.6 Lymph # (Auto) 1.2 [place] # (Auto) 0.5 Eos # (Auto) 0.1 Baso # (Auto) 0.1 WBC Differential . Differential Comment Auto diff final Sodium 140 Potassium 4.0 Chloride 111 H Carbon Dioxide 19.7 L Anion Gap 9 BUN 37 H Creatinine 1.26 H Estimated GFR 41 L Random Glucose 97 Calcium 8.7 Total Bilirubin 0.5 AST 26 ALT 43 Alkaline Phosphatase 98 Total Protein 6.9 D Albumin 3.2 L Urine Color Yellow Urine Clarity Hazy H Urine pH 5.0 Ur Specific [place] 1.018 Urine Protein Negative Urine Glucose (UA) Negative Urine Ketones Negative Urine Occult Blood Small H Urine Nitrate Negative Urine Bilirubin Negative Urine Urobilinogen Less than 2 Ur Leukocyte Esterase Small H Urine RBC 1 Urine WBC 36 H Ur Squamous Epith Cells 2 Urine Bacteria Many H Urine Mucus Few H Micro UA Comment Cath-culture ind Ur Microscopic Review Not Reportable Urine Culture Comments Cath-cult indicated - Imaging Impressions Head CT 07/06/18 08:33 CONCLUSION: 1. Age-related changes of the brain without evidence of acute abnormality. There is extensive atherosclerosis identified within the vertebral arteries. . Assessment and Plan - Plan This is 78 year old female with a history of recent A. fib on Eliquis, hypertension, hyperlipidemia, hypothyroidism, depression and cervical cancer status post surgery. She presents to the emergency room complaining of abdominal pain for the past 2 weeks associated with shortness of breath, dizziness, nausea and generalized weakness. She was evaluated by her artist manager and was found to have A. fib and was started on Eliquis, metoprolol and flecainide. Underwent echocardiogram which was reportedly unremarkable. Patient was told she might need stress test and cardioversion. Symptoms persisted prompting ER visit. Ultrasound shows abnormal appearance of the gallbladder with wall thickening and pericholecystic fluid. //Acalculus cholecystitis. Patient will be hospitalized for further evaluation and treatment. Consult general surgery. Hold Eliquis and aspirin. Continue IV Levaquin, metronidazole and pain management with IV morphine counseled regarding narcotics. = Continue IV antibiotics. General surgery following. Holding Eliquis at this time. //Acute kidney injury secondary to dehydration. Nonoliguric. Obtain urinalysis and start gentle IV hydration. Avoid nephrotoxins hold Aldactone. = Improving with gentle IV hydration. This could also be secondary to A. fib, RVR. Continue to monitor renal function. //A. fib, RVR on admission //Elevated BNP. No evidence of heart failure. Chest x-ray without acute cardiopulmonary disease. Obtain results of echocardiogram done from patient's artist manager = Cardiology following. Appreciate assistance. Continue metoprolol with improved rate control. //Uncontrolled hypertension. Continue home medications with as needed clonidine. //DVT prophylaxis with SCD and early ambulation. Discussed Condition With: Patient, nurse Discharge Planning: Pending clearance from cardiology and general surgery.
--- NOTE | 2018-07-07 11:13 | P.PNGS ---
Subjective Patient reports: still having pain (right sided pain, chest pressure) Physical Exam Vital signs: Vital Signs 07/06/18 14:26 07/06/18 16:00 07/06/18 16:53 Temperature 97.8 F 97.1 F L Pulse Rate 96 H 83 Respiratory Rate 20 20 Blood Pressure 159/97 H 137/87 Pulse Oximetry 95 07/06/18 20:00 07/07/18 00:00 07/07/18 04:00 Temperature 98.0 F 97.1 F L 97.2 F L Pulse Rate 81 90 92 H Respiratory Rate 18 18 18 Blood Pressure 135/83 148/91 H 145/105 H Pulse Oximetry 93 L 94 L 95 07/07/18 08:00 Temperature 97.2 F L Pulse Rate 84 Respiratory Rate 16 Blood Pressure 165/98 H Pulse Oximetry 96 Intake & Output 07/06/18 07/07/18 07/07/18 18:59 06:59 18:59 Intake Total 1400 / 1400 1100 / 1100 100 / 100 Balance 1400 / 1400 1100 / 1100 100 / 100 Weight 78.925 kg 87.2 kg Intake: IV 800 / 800 200 / 200 100 / 100 Levaquin 250 mg Premix Inj 250 50 / 50 mg In 50 ml @ 50 mls/hr IV.SIG ONCE ONE Rx#:[id number] Levaquin 500 mg Premix Inj 500 100 / 100 mg In 100 ml @ 100 mls/hr IV. SIG Q24H [facility] Rx#:[id number] NS Inj 1,000 ML @ Wide Open IV. 550 / 550 SIG BOLUS ONE Rx#:[id number] Flagyl 500 MG Inj 100 ML @ 100 200 / 200 200 / 200 mls/hr IV.SIG Q6H [facility] Rx#: [id number] Oral 600 / 600 900 / 900 Other: # Voids 2 3 Date of Last Bowel Movement 07/06/18 07/06/18 - Routine Abdominal Exam Present: soft (ruq ttp) Results - Labs 07/07/18 05:35 07/07/18 05:35 Laboratory Results - last 24 hr 07/06/18 07/07/18 07/07/18 14:15 05:35 05:35 WBC 6.6 RBC 3.64 L Hgb 11.3 L Hct 34.1 L MCV 93.9 MCH 31.0 MCHC 33.1 RDW 14.1 Plt Count 237 MPV 8.5 Neut % (Auto) 70.5 H Lymph % (Auto) 18.6 [place] % (Auto) 7.9 Eos % (Auto) 2.1 Baso % (Auto) 0.9 Neut # (Auto) 4.6 Lymph # (Auto) 1.2 [place] # (Auto) 0.5 Eos # (Auto) 0.1 Baso # (Auto) 0.1 WBC Differential . Differential Comment Auto diff final Sodium 140 Potassium 4.0 Chloride 111 H Carbon Dioxide 19.7 L Anion Gap 9 BUN 37 H Creatinine 1.26 H Estimated GFR 41 L Random Glucose 97 Calcium 8.7 Total Bilirubin 0.5 AST 26 ALT 43 Alkaline Phosphatase 98 Total Protein 6.9 D Albumin 3.2 L Urine Color Yellow Urine Clarity Hazy H Urine pH 5.0 Ur Specific [place] 1.018 Urine Protein Negative Urine Glucose (UA) Negative Urine Ketones Negative Urine Occult Blood Small H Urine Nitrate Negative Urine Bilirubin Negative Urine Urobilinogen Less than 2 Ur Leukocyte Esterase Small H Urine RBC 1 Urine WBC 36 H Ur Squamous Epith Cells 2 Urine Bacteria Many H Urine Mucus Few H Micro UA Comment Cath-culture ind Ur Microscopic Review Not Reportable Urine Culture Comments Cath-cult indicated - Imaging Imaging: ITS Impressions Head CT 07/06/18 08:33 CONCLUSION: 1. Age-related changes of the brain without evidence of acute abnormality. There is extensive atherosclerosis identified within the vertebral arteries. . Chest X-Ray 07/06/18 08:36 CONCLUSION: Negative examination. Gallbladder Ultrasound 07/06/18 08:48 CONCLUSION: 1. Abnormal appearance of the gallbladder with wall thickening, pericholecystic fluid. No evidence of stones. Concern is for possible acalculous cholecystitis. Assessment and Plan - Plan acute cholecystitis, A fib on eliquis PLAN ok for bland diet await cardio recs for surgical clearance abx pain control will plan for OR saturday pending clearance
[2018-07-07] MEDS: Melatonin 5 MG Tablet PO PRN (22:04)
[2018-07-08] MEDS: Flecainide 100 MG Tablet PO SCH ×2 (02:44→14:45)
[2018-07-08] MEDS: Levothyroxine 75 MCG Tablet PO SCH (05:00)
[2018-07-08 07:45] LABS: Baso # (Auto) 0.1 th/mm3 (0.0-0.2); Baso % (Auto) 1.3 % (0.0-2.0); Eos # (Auto) 0.1 th/mm3 (0.0-0.4); Eos % (Auto) 1.9 % (0.0-4.0); Hematocrit 33.2 % (35.0-46.0); Hemoglobin 11.4 gm/dL (11.6-15.3); Lymph # (Auto) 0.8 th/mm3 (1.0-4.8); Lymph % (Auto) 10.7 % (9.0-44.0); Mean Corpuscular HGB Conc 34.4 % (32.0-36.0); Mean Corpuscular Hemoglobin 31.7 pg (27.0-34.0); Mean Corpuscular Volume 92.3 fL (80.0-100.0); Mean Platelet Volume 8.4 fL (7.0-11.0); Mono # (Auto) 0.6 th/mm3 (0.0-0.9); Neut # (Auto) 5.8 th/mm3 (1.8-7.7); Neut % (Auto) 78.1 % (16.0-70.0); Platelet Count 244 th/mm3 (150-450); Red Blood Count 3.59 mil/mm3 (4.00-5.30); Red Cell Distribution Width 13.8 % (11.6-17.2); White Blood Count 7.5 th/mm3 (4.0-11.0)
[2018-07-08 07:56] LABS: Calcium 8.8 mg/dL (8.5-10.1); Carbon Dioxide 21.9 meq/L (21.0-32.0); Magnesium 1.5 mg/dL (1.5-2.5); Potassium 3.8 meq/L (3.5-5.1)
[2018-07-08 07:59] LABS: Phosphorus 3.3 mg/dL (2.5-4.9); Total Protein 6.8 g/dL (6.4-8.2)
[2018-07-08] MEDS: Metoprolol Tartrate 25 MG Tablet PO SCH ×3 (09:22→17:07)
[2018-07-08] MEDS: Senna/Docusate Sodium 8.6/50 MG Tablet PO SCH ×2 (09:22→21:40)
[2018-07-08] MEDS: Levofloxacin 500 mg Premix Inj 500 MG/100 ML PIGGYBACK IV.SIG SCH (09:23)
--- NOTE | 2018-07-08 11:48 | P.PNGS ---
Subjective Patient reports: feels better, afebrile Physical Exam Vital signs: Vital Signs 07/07/18 12:00 07/07/18 16:00 07/07/18 20:00 Temperature 97.4 F L 98.5 F Pulse Rate 73 95 H 81 Respiratory Rate 16 14 20 Blood Pressure 135/90 120/88 126/78 Pulse Oximetry 97 96 96 07/08/18 00:00 07/08/18 04:00 07/08/18 08:00 Temperature 97.2 F L 97.6 F 96.1 F L Pulse Rate 73 88 79 Respiratory Rate 20 20 18 Blood Pressure 159/101 H 157/105 H 142/91 H Pulse Oximetry 96 97 97 Intake & Output 07/07/18 07/08/18 07/08/18 18:59 06:59 18:59 Intake Total 1540 / 1540 830 / 830 100 / 100 Balance 1540 / 1540 830 / 830 100 / 100 Weight 87.2 kg Intake: IV 1300 / 1300 200 / 200 100 / 100 LR 1000 mL Inj 1,000 ML @ 42 1000 / 1000 mls/hr IV.CONT .[id number] [facility] Rx# :[id number] Levaquin 500 mg Premix Inj 500 100 / 100 100 / 100 mg In 100 ml @ 100 mls/hr IV. SIG Q24H [facility] Rx#:[id number] Flagyl 500 MG Inj 100 ML @ 100 200 / 200 200 / 200 mls/hr IV.SIG Q6H [facility] Rx#: [id number] Oral 240 / 240 630 / 630 Other: # Voids 1 4 Date of Last Bowel Movement 07/06/18 07/06/18 07/06/18 # Bowel Movements 1 - Routine Abdominal Exam Present: soft (ruq ttp) Results - Labs 07/08/18 06:46 07/08/18 06:46 Laboratory Results - last 24 hr 07/08/18 07/08/18 06:46 06:46 WBC 7.5 RBC 3.59 L Hgb 11.4 L Hct 33.2 L MCV 92.3 MCH 31.7 MCHC 34.4 RDW 13.8 Plt Count 244 MPV 8.4 Neut % (Auto) 78.1 H Lymph % (Auto) 10.7 [place] % (Auto) 8.0 Eos % (Auto) 1.9 Baso % (Auto) 1.3 Neut # (Auto) 5.8 Lymph # (Auto) 0.8 L [place] # (Auto) 0.6 Eos # (Auto) 0.1 Baso # (Auto) 0.1 WBC Differential . Differential Comment Auto diff final Sodium 140 Potassium 3.8 Chloride 109 H Carbon Dioxide 21.9 Anion Gap 9 BUN 35 H Creatinine 1.32 H Estimated GFR 39 L Random Glucose 109 H Calcium 8.8 Phosphorus 3.3 Magnesium 1.5 Total Bilirubin 0.4 Direct Bilirubin 0.1 Indirect Bilirubin 0.3 AST 20 ALT 40 Alkaline Phosphatase 93 Total Protein 6.8 Albumin 3.0 L - Imaging Imaging: ITS Impressions Head CT 07/06/18 08:33 CONCLUSION: 1. Age-related changes of the brain without evidence of acute abnormality. There is extensive atherosclerosis identified within the vertebral arteries. . Chest X-Ray 07/06/18 08:36 CONCLUSION: Negative examination. Gallbladder Ultrasound 07/06/18 08:48 CONCLUSION: 1. Abnormal appearance of the gallbladder with wall thickening, pericholecystic fluid. No evidence of stones. Concern is for possible acalculous cholecystitis. Assessment and Plan - Plan acute cholecystitis, A fib on eliquis PLAN ok for bland diet, npo after mn await cardio recs for surgical clearance abx pain control will plan for OR tomorrow pending clearance
--- NOTE | 2018-07-08 12:54 | P.PNCA ---
Subjective Interval history: 78 Y/O F ADMITTED C CP/RUQ PAIN JUST SEEN IN OFFICE C AF HX HTN DYSLIPIDEMIA NO HX OF ASHD BUT HAS NOT BEEN W/U NO HX OF ANGINA AND SHE FEELS FINE NOW SCHEDULED FOR LAP AUDREY IN AM NO HX OF CHF ECHO OK LCTA AF NO M OR S3 PT APPEARS TO BE AN ADEQUETE RISK FOR SX WOULD RESUME ALL MEDS P OP HOME HEALTH SPECIALIST AND RESUME ELIQUIS 5 BID P OP WILL F/U IN OFFICE Medications and Allergies Active Medications: Active Medications Acetaminophen (Tylenol) 650 mg PO Q4H PRN PRN Reason: Temp > 100.4 Bisacodyl (Dulcolax Supp) 10 mg RECTAL DAILY PRN PRN Reason: SEVERE CONSITIPATION Clonidine HCl (Catapres) 0.1 mg PO Q6H PRN PRN Reason: SEE LABEL COMMENTS Last Admin: 07/08/18 04:53 Dose: 0.1 mg Flecainide Acetate (Tambocor) 50 mg PO Q12H [facility] Last Admin: 07/08/18 02:44 Dose: 50 mg Hydralazine HCl (Apresoline Inj) 10 mg IV.PUSH Q6H PRN PRN Reason: SEE LABEL COMMENTS Last Admin: 07/07/18 11:46 Dose: 10 mg Metronidazole/Sodium Chloride (Flagyl 500 Mg Inj) 100 mls @ 100 mls/hr IV.SIG Q6H [facility] Last Admin: 07/08/18 11:35 Dose: 100 mls/hr Lactated Ringer's (Lr 1000 Ml Inj) 1,000 mls @ 42 mls/hr IV.CONT .[id number] [facility] Last Admin: 07/07/18 12:45 Dose: 42 mls/hr Levofloxacin/Dextrose (Levaquin 500 Mg Premix Inj) 500 mg in 100 mls @ 100 mls/ hr IV.SIG Q24H [facility] Last Infusion: 07/08/18 10:41 Dose: Infused Lactulose (Lactulose Liq) 30 ml PO DAILY PRN PRN Reason: SEVERE CONSITIPATION Levothyroxine Sodium (Synthroid) 75 mcg PO DAILY@0600 [facility] Last Admin: 07/08/18 05:00 Dose: 75 mcg Losartan Potassium (Cozaar) 100 mg PO DAILY [facility] Last Admin: 07/08/18 09:22 Dose: 100 mg Melatonin (Melatonin) 10 mg PO HS PRN PRN Reason: INSOMNIA Last Admin: 07/07/18 22:04 Dose: 10 mg Metoprolol Tartrate (Lopressor) 25 mg PO TID [facility] Last Admin: 07/08/18 09:22 Dose: 25 mg Morphine Sulfate (Morphine Inj) 1 mg IV.PUSH Q3H PRN PRN Reason: PAIN 3-5; IF UABLE TO TAKE PO Last Admin: 07/06/18 17:18 Dose: 1 mg Morphine Sulfate (Morphine Inj) 2 mg IV.PUSH Q3H PRN PRN Reason: PAIN 6-10;IF UNABLE TO TAKE PO Morphine Sulfate (Morphine Inj) 2 mg IV.PUSH Q3H PRN PRN Reason: BREAKTHROUGH PAIN Naloxone HCl (Narcan Inj) 0.4 mg IV.PUSH UNSCH PRN PRN Reason: SEE LABEL COMMENTS Ondansetron HCl (Zofran Inj) 4 mg IV.PUSH Q6H PRN PRN Reason: NAUSEA OR VOMITING Senna/Docusate Sodium (Nichole-Colace) 1 tab PO BID [facility] Last Admin: 07/08/18 09:22 Dose: Not Given Sennosides (Senokot) 17.2 mg PO Q12H PRN PRN Reason: Moderate Constipation Sodium Chloride (Ns Flush) 2 ml IV.FLUSH UNSCH PRN PRN Reason: FLUSH AFTER USING IV ACCESS Last Admin: 07/06/18 17:19 Dose: 2 ml Spironolactone (Aldactone) 25 mg PO DAILY [facility] Last Admin: 07/07/18 09:24 Dose: 25 mg Allergies Allergy/AdvReac Type Severity Reaction Status Date / Time lisinopril Allergy Edema, Verified 07/06/18 08:32 Localized Penicillins Allergy Hives Verified 07/06/18 08:32 Home Medications Medication Instructions Recorded Confirmed Type apixaban [Eliquis] 5 mg PO BID 07/06/18 07/06/18 History aspirin [Aspir-81] 81 mg PO DAILY 07/06/18 07/06/18 History celecoxib 200 mg PO DAILY 07/06/18 07/06/18 History flecainide 50 mg PO Q12H 07/06/18 07/06/18 History irbesartan 300 mg PO DAILY 07/06/18 07/06/18 History levothyroxine 75 mcg PO DAILY 07/06/18 07/06/18 History metoprolol tartrate 25 mg PO BID 07/06/18 07/06/18 History rosuvastatin 20 mg PO DAILY 07/06/18 07/06/18 History sertraline 100 mg PO DAILY 07/06/18 07/06/18 History spironolactone 25 mg PO DAILY 07/06/18 07/06/18 History Physical Exam Vital signs: Vital Signs 07/07/18 16:00 07/07/18 20:00 07/08/18 00:00 Temperature 98.5 F 97.2 F L Pulse Rate 95 H 81 73 Respiratory Rate 14 20 20 Blood Pressure 120/88 126/78 159/101 H Pulse Oximetry 96 96 96 07/08/18 04:00 07/08/18 08:00 Temperature 97.6 F 96.1 F L Pulse Rate 88 79 Respiratory Rate 20 18 Blood Pressure 157/105 H 142/91 H Pulse Oximetry 97 97 Intake & Output 07/07/18 07/08/18 07/08/18 18:59 06:59 18:59 Intake Total 1540 / 1540 830 / 830 100 / 100 Balance 1540 / 1540 830 / 830 100 / 100 Weight 87.2 kg Intake: IV 1300 / 1300 200 / 200 100 / 100 LR 1000 mL Inj 1,000 ML @ 42 1000 / 1000 mls/hr IV.CONT .[id number] [facility] Rx# :[id number] Levaquin 500 mg Premix Inj 500 100 / 100 100 / 100 mg In 100 ml @ 100 mls/hr IV. SIG Q24H [facility] Rx#:[id number] Flagyl 500 MG Inj 100 ML @ 100 200 / 200 200 / 200 mls/hr IV.SIG Q6H [facility] Rx#: [id number] Oral 240 / 240 630 / 630 Other: # Voids 1 4 Date of Last Bowel Movement 07/06/18 07/06/18 07/06/18 # Bowel Movements 1 Results 07/08/18 06:46 07/08/18 06:46 Cardiac Enzymes 07/07/18 07/08/18 Range/Units 05:35 06:46 AST 26 20 (15-37) U/L CBC 07/07/18 07/08/18 Range/Units 05:35 06:46 WBC 6.6 7.5 (4.0-11.0) th/mm3 RBC 3.64 L 3.59 L (4.00-5.30) mil/mm3 Hgb 11.3 L 11.4 L (11.6-15.3) gm/dL Hct 34.1 L 33.2 L (35.0-46.0) % Plt Count 237 244 (150-450) th/mm3 Neut # (Auto) 4.6 5.8 (1.8-7.7) th/mm3 Lymph # (Auto) 1.2 0.8 L (1.0-4.8) th/mm3 [place] # (Auto) 0.5 0.6 (0.0-0.9) th/mm3 Eos # (Auto) 0.1 0.1 (0.0-0.4) th/mm3 Baso # (Auto) 0.1 0.1 (0.0-0.2) th/mm3 Comprehensive Metabolic Panel 07/07/18 07/08/18 Range/Units 05:35 06:46 Sodium 140 140 (136-145) meq/L Potassium 4.0 3.8 (3.5-5.1) meq/L Chloride 111 H 109 H (98-107) meq/L Carbon Dioxide 19.7 L 21.9 (21.0-32.0) meq/L BUN 37 H 35 H (7-18) mg/dL Creatinine 1.26 H 1.32 H (0.50-1.00) mg/dL Calcium 8.7 8.8 (8.5-10.1) mg/dL Direct Bilirubin 0.1 (0.0-0.2) mg/dL Indirect Bilirubin 0.3 (0.0-0.8) mg/dL AST 26 20 (15-37) U/L ALT 43 40 (10-53) U/L Alkaline Phosphatase 98 93 (45-117) U/L Total Protein 6.9 D 6.8 (6.4-8.2) g/dL Albumin 3.2 L 3.0 L (3.4-5.0) g/dL Intake and Output 07/07/18 07/08/18 07/08/18 22:59 06:59 14:59 Intake Total 340 / 340 830 / 830 100 / 100 Balance 340 / 340 830 / 830 100 / 100 Intake: IV 100 / 100 200 / 200 100 / 100 Levaquin 500 mg Premix Inj 500 100 / 100 mg In 100 ml @ 100 mls/hr IV. SIG Q24H [facility] Rx#:[id number] Flagyl 500 MG Inj 100 ML @ 100 100 / 100 200 / 200 mls/hr IV.SIG Q6H [facility] Rx#: [id number] Oral 240 / 240 630 / 630 Other: # Voids 1 4 Date of Last Bowel Movement 07/06/18 07/06/18 # Bowel Movements 1 Weight 87.2 kg
--- NOTE | 2018-07-08 17:34 | P.PNIM ---
Subjective Interval history: Patient says she is feeling all right. Reports right upper quadrant discomfort is improving. Denies any chest pain or shortness of breath. She requests something for sleep at night. Says she uses Xanax at night sometimes. Physical Exam Vital signs: Vital Signs 07/07/18 20:00 07/08/18 00:00 07/08/18 04:00 Temperature 98.5 F 97.2 F L 97.6 F Pulse Rate 81 73 88 Respiratory Rate 20 20 20 Blood Pressure 126/78 159/101 H 157/105 H Pulse Oximetry 96 96 97 07/08/18 08:00 07/08/18 12:00 07/08/18 16:00 Temperature 96.1 F L 97.7 F Pulse Rate 79 72 86 Respiratory Rate 18 18 Blood Pressure 142/91 H 121/84 Pulse Oximetry 97 97 Intake & Output 07/07/18 07/08/18 07/08/18 18:59 06:59 18:59 Intake Total 1540 / 1540 830 / 830 1200 / 1200 Balance 1540 / 1540 830 / 830 1200 / 1200 Weight 87.2 kg Intake: IV 1300 / 1300 200 / 200 1200 / 1200 LR 1000 mL Inj 1,000 ML @ 42 1000 / 1000 1000 / 1000 mls/hr IV.CONT .[id number] [facility] Rx# :[id number] Levaquin 500 mg Premix Inj 500 100 / 100 100 / 100 mg In 100 ml @ 100 mls/hr IV. SIG Q24H [facility] Rx#:[id number] Flagyl 500 MG Inj 100 ML @ 100 200 / 200 200 / 200 100 / 100 mls/hr IV.SIG Q6H [facility] Rx#: [id number] Oral 240 / 240 630 / 630 Other: # Voids 1 4 Date of Last Bowel Movement 07/06/18 07/06/18 07/06/18 # Bowel Movements 1 Narrative: GENERAL: Patient lying in bed. Appears comfortable. SKIN: Warm and dry. HEAD: Normocephalic. EYES: No scleral icterus. No injection or drainage. NECK: Supple, trachea midline. No JVD. CARDIOVASCULAR: Irregularly irregular rhythm without murmurs, gallops, or rubs. Normal rate RESPIRATORY: Breath sounds equal bilaterally. No accessory muscle use. GASTROINTESTINAL: Abdomen soft, non-tender, nondistended. MUSCULOSKELETAL: No cyanosis, or edema. BACK: Nontender without obvious deformity. No CVA tenderness. Results - Labs CBC & Chem 7: 07/08/18 06:46 07/08/18 06:46 Laboratory Results - last 24 hr 07/08/18 07/08/18 06:46 06:46 WBC 7.5 RBC 3.59 L Hgb 11.4 L Hct 33.2 L MCV 92.3 MCH 31.7 MCHC 34.4 RDW 13.8 Plt Count 244 MPV 8.4 Neut % (Auto) 78.1 H Lymph % (Auto) 10.7 [place] % (Auto) 8.0 Eos % (Auto) 1.9 Baso % (Auto) 1.3 Neut # (Auto) 5.8 Lymph # (Auto) 0.8 L [place] # (Auto) 0.6 Eos # (Auto) 0.1 Baso # (Auto) 0.1 WBC Differential . Differential Comment Auto diff final Sodium 140 Potassium 3.8 Chloride 109 H Carbon Dioxide 21.9 Anion Gap 9 BUN 35 H Creatinine 1.32 H Estimated GFR 39 L Random Glucose 109 H Calcium 8.8 Phosphorus 3.3 Magnesium 1.5 Total Bilirubin 0.4 Direct Bilirubin 0.1 Indirect Bilirubin 0.3 AST 20 ALT 40 Alkaline Phosphatase 93 Total Protein 6.8 Albumin 3.0 L Microbiology 07/06/18 14:15 Clean Catch Urine Urine Culture - Final No growth in 48 hours Assessment and Plan - Plan This is 78 year old female with a history of recent A. fib on Eliquis, hypertension, hyperlipidemia, hypothyroidism, depression and cervical cancer status post surgery. She presents to the emergency room complaining of abdominal pain for the past 2 weeks associated with shortness of breath, dizziness, nausea and generalized weakness. She was evaluated by her lung splitter and was found to have A. fib and was started on Eliquis, metoprolol and flecainide. Underwent echocardiogram which was reportedly unremarkable. Patient was told she might need stress test and cardioversion. Symptoms persisted prompting ER visit. Ultrasound shows abnormal appearance of the gallbladder with wall thickening and pericholecystic fluid. //Acalculus cholecystitis. Patient will be hospitalized for further evaluation and treatment. Consult general surgery. Hold Eliquis and aspirin. Continue IV Levaquin, metronidazole and pain management with IV morphine counseled regarding narcotics. = Continue IV antibiotics. General surgery following. Holding Eliquis at this time. = 07/08. Plan for cholecystectomy tomorrow as per general surgery. Cleared by cardiology. Appreciate assistance. //Acute kidney injury secondary to dehydration. Nonoliguric. Obtain urinalysis and start gentle IV hydration. Avoid nephrotoxins hold Aldactone. = Improving with gentle IV hydration. This could also be secondary to A. fib, RVR. Continue to monitor renal function. = Creatinine 1.3. Stable. Continue to monitor. //A. fib, RVR on admission //Elevated BNP. No evidence of heart failure. Chest x-ray without acute cardiopulmonary disease. Obtain results of echocardiogram done from patient's lung splitter = Cardiology following. Appreciate assistance. Continue metoprolol with improved rate control. = Appreciate cardiology assistance. Continue to monitor heart rate. Controlled on metoprolol. //Uncontrolled hypertension. Continue home medications with as needed. //DVT prophylaxis with SCD and early ambulation. Discharge Planning: Cholecystectomy planned for tomorrow. Will need cardiology and general surgery clearance.
[2018-07-09] MEDS: Flecainide 100 MG Tablet PO SCH ×2 (04:15→16:21)
[2018-07-09] MEDS: Levothyroxine 75 MCG Tablet PO SCH (05:03)
[2018-07-09] MEDS ORDERED: Chlorhexidine Gluconate 2% 1 Pack (2 Cloths) TOPICAL ONE (06:15)
[2018-07-09] MEDS ORDERED: Sodium Chlor 0.9% Inj 500 ML IV.CONT ONE (06:15)
[2018-07-09] MEDS ORDERED: Sugammadex Inj 200 MG/2 ML Vial IV.PUSH ONE (07:05)
[2018-07-09] MEDS ORDERED: Bupivacaine/Epinephrine Inj 0.25% 50 ML Vial ONE (07:07)
[2018-07-09] MEDS ORDERED: Lidocaine PF 1% Inj 5 ML Syringe OTHER ONE (07:39)
[2018-07-09] MEDS ORDERED: Phenylephrine/NS 1000 MCG/10ML Syringe IV.PUSH ONE (07:39)
--- NOTE | 2018-07-09 08:52 | P.OP ---
- Preoperative Diagnosis (1) Acute acalculous cholecystitis - Postoperative Diagnosis (1) Acute acalculous cholecystitis Procedure: lap morris Anesthesia: GETA Surgeon: Rocky Hopson MD Estimated blood loss (mL): 40 Pathology: other (gallbladder) Operation and Findings: distended gallbladder, acute cholecystitis, liver adhesions
[2018-07-09] MEDS ORDERED: Ketorolac Inj 30 MG/ML (IVP) Vial ONE (09:24)
[2018-07-09] MEDS ORDERED: *morphine SULFATE 4 MG/ML PERIprocedure ONLY ONE (09:36)
[2018-07-09] MEDS ORDERED: fentaNYL Citrate Inj 100 MCG/2 ML Ampul ONE ×2 (09:50)
[2018-07-09] MEDS ORDERED: Ketorolac Inj 30 MG/ML (IVP) Vial IV.PUSH ONE (10:00)
[2018-07-09] MEDS ORDERED: *Labetalol HCl Inj 100 MG/20 ML Vial PERIprocedural Use ONLY IV.PUSH ONE (10:02)
[2018-07-09] MEDS: Morphine Inj 4 MG/ML Vial IV.PUSH PRN ×3 (10:56→20:05)
[2018-07-09] MEDS: Levofloxacin 500 mg Premix Inj 500 MG/100 ML PIGGYBACK IV.SIG SCH (10:57)
[2018-07-09] MEDS: Senna/Docusate Sodium 8.6/50 MG Tablet PO SCH ×2 (11:17→20:10)
[2018-07-09] MEDS: Metoprolol Tartrate 25 MG Tablet PO SCH ×3 (11:17→17:27)
--- NOTE | 2018-07-09 13:19 | P.PNIM ---
Subjective Interval history: Patient sleeping, wakes up for exam. Denies any chest pain or shortness of breath. She reports abdominal pain after surgery. Somewhat controlled by morphine. Physical Exam Vital signs: Vital Signs 07/08/18 16:00 07/08/18 17:57 07/08/18 19:53 Temperature 97.9 F Pulse Rate 93 H 77 Respiratory Rate 16 Blood Pressure 156/104 H Pulse Oximetry 95 95 07/08/18 20:00 07/08/18 23:10 07/08/18 23:55 Temperature 97.8 F 98.0 F Pulse Rate 73 79 83 Respiratory Rate 18 16 Blood Pressure 139/70 143/95 H Pulse Oximetry 95 98 07/09/18 03:51 07/09/18 04:00 07/09/18 08:00 Temperature 97.6 F 97.8 F Pulse Rate 94 H 87 86 Respiratory Rate 17 17 Blood Pressure 141/73 H 136/70 Pulse Oximetry 94 L 96 07/09/18 08:59 07/09/18 09:11 07/09/18 09:15 Temperature 96.3 F L Pulse Rate 91 H 99 H Respiratory Rate 12 28 H Blood Pressure 153/95 H 168/90 H Pulse Oximetry 92 L 96 94 L 07/09/18 09:30 07/09/18 09:45 07/09/18 10:56 Temperature 97.6 F Pulse Rate 86 95 H 88 Respiratory Rate 18 22 20 Blood Pressure 157/91 H 169/99 H 166/109 H Pulse Oximetry 93 L 93 L 95 07/09/18 10:58 07/09/18 12:00 Temperature Pulse Rate 93 H Respiratory Rate 18 16 Blood Pressure Pulse Oximetry Intake & Output 07/08/18 07/09/18 07/09/18 18:59 06:59 18:59 Intake Total 1780 / 1780 200 / 200 1200 / 1200 Output Total 400 / 400 40 / 40 Balance 1780 / 1780 -200 / -200 1160 / 1160 Weight 88 kg Intake: IV 1300 / 1300 200 / 200 200 / 200 LR 1000 mL Inj 1,000 ML @ 42 1000 / 1000 mls/hr IV.CONT .[id number] [facility] Rx# :[id number] Levaquin 500 mg Premix Inj 500 100 / 100 100 / 100 mg In 100 ml @ 100 mls/hr IV. SIG Q24H [facility] Rx#:[id number] Flagyl 500 MG Inj 100 ML @ 100 200 / 200 200 / 200 100 / 100 mls/hr IV.SIG Q6H [facility] Rx#: [id number] Oral 480 / 480 Anesthesia Amount 1000 / 1000 Output: Estimated Blood Loss 40 / 40 Urine Amount (Catheter) 400 / 400 Straight 400 / 400 Other: Date of Last Bowel Movement 07/06/18 Narrative: GENERAL: Patient lying in bed. Appears comfortable. SKIN: Warm and dry. HEAD: Normocephalic. EYES: No scleral icterus. No injection or drainage. NECK: Supple, trachea midline. No JVD. CARDIOVASCULAR: Irregularly irregular rhythm without murmurs, gallops, or rubs. Normal rate RESPIRATORY: Breath sounds equal bilaterally. No accessory muscle use. GASTROINTESTINAL: Abdomen soft, non-tender, nondistended. Postoperative incisions clean dry and intact. MUSCULOSKELETAL: No cyanosis, or edema. BACK: Nontender without obvious deformity. No CVA tenderness. - Urinary Catheter Management Straight Cath placed during this visit: no Results - Labs CBC & Chem 7: 07/08/18 06:46 07/08/18 06:46 Assessment and Plan - Plan This is 78 year old female with a history of recent A. fib on Eliquis, hypertension, hyperlipidemia, hypothyroidism, depression and cervical cancer status post surgery. She presents to the emergency room complaining of abdominal pain for the past 2 weeks associated with shortness of breath, dizziness, nausea and generalized weakness. She was evaluated by her nursing director and was found to have A. fib and was started on Eliquis, metoprolol and flecainide. Underwent echocardiogram which was reportedly unremarkable. Patient was told she might need stress test and cardioversion. Symptoms persisted prompting ER visit. Ultrasound shows abnormal appearance of the gallbladder with wall thickening and pericholecystic fluid. //Acalculus cholecystitis. Patient will be hospitalized for further evaluation and treatment. Consult general surgery. Hold Eliquis and aspirin. Continue IV Levaquin, metronidazole and pain management with IV morphine counseled regarding narcotics. = Continue IV antibiotics. General surgery following. Holding Eliquis at this time. = 07/08. Plan for cholecystectomy tomorrow as per general surgery. Cleared by cardiology. Appreciate assistance. = 07/09. Postoperative day 0 cholecystectomy. Pain control. Hopefully can go home in the next 1-2 days. //Acute kidney injury secondary to dehydration. Nonoliguric. Obtain urinalysis and start gentle IV hydration. Avoid nephrotoxins hold Aldactone. = Improving with gentle IV hydration. This could also be secondary to A. fib, RVR. Continue to monitor renal function. = Creatinine 1.3. Stable. Continue to monitor. = 07/09. Postoperative day 0. Check labs tomorrow. //A. fib, RVR on admission //Elevated BNP. No evidence of heart failure. Chest x-ray without acute cardiopulmonary disease. Obtain results of echocardiogram done from patient's nursing director = Cardiology following. Appreciate assistance. Continue metoprolol with improved rate control. = Appreciate cardiology assistance. Continue to monitor heart rate. Controlled on metoprolol. Cardiology following. Appreciate assistance. //Uncontrolled hypertension. Continue home medications with as needed. //DVT prophylaxis with SCD and early ambulation. Discharge Planning: Status post cholecystectomy performed 07/09. =Will need cardiology and general surgery clearance. = We will order PT eval. = Hopefully home with home health in the next 1-2 days.
--- NOTE | 2018-07-09 13:20 | P.DCO ---
- Diagnosis (1) Acute acalculous cholecystitis Status: Acute - Physical Therapy Order: Evaluate and treat - Home Health Nursing Order: Wound care and dressing changes - Case Management Consult Case Management Consult-Home Health: Yes - Certification I have seen patient Kamilla Blood on 07/09/18. My clinical findings support the need for the requested home health care services because: Deconditioned with increased weakness I certify that my clinical findings support that this patient is homebound because: Unsafe to leave home unassisted
--- NOTE | 2018-07-09 15:11 | MP ---
cc: Rocky Hopson MD DATE OF OPERATION: 07/09/2018 PREOPERATIVE DIAGNOSIS: Acalculous cholecystitis. POSTOPERATIVE DIAGNOSIS: Acalculous cholecystitis. PROCEDURE PERFORMED: Laparoscopic cholecystectomy. SURGEON: Rocky Hopson MD TAILERCPA: None. ANESTHESIA: GETA. IV FLUIDS: See anesthesia sheet. ESTIMATED BLOOD LOSS: 40 mL. DRAINS: None. COMPLICATIONS: None. WOUND CLASSIFICATION: Clean/contaminated. SPECIMENS: Gallbladder. FINDINGS: Small little bleeding point on the liver, cauterized. Surgicel powder placed for hemostasis. Gallbladder fossa noted to be dry at end of surgery. INDICATIONS: The patient is a 78-year-old female with multiple medical issues who presents with acute onset of abdominal epigastric pain. She had further workup including a radiological workup showing acalculous acute cholecystitis. Therefore, the patient underwent cardiac clearance and was cleared for procedure. The decision was made for operative intervention after holding Eliquis for 48 hours. DETAILS OF PROCEDURE: The patient was taken to the operating suite, placed in supine position. She was prepped and draped in usual sterile fashion after induction of general endotracheal anesthesia. A brief timeout was done to ensure correct patient, procedure, surgical site, we were all in agreement. Attention was directed to the umbilicus where a stab hay incision was made with 11 blade. A Visiport Optiview 5 mm port was placed and entered the abdomen safely. Abdomen was insufflated to 50 mm of pneumoperitoneum. On cursory inspection, no evidence of injury. Three other ports were placed, including one epigastric 12 mm, followed by two right subcostal ports. Patient placed into a reverse Trendelenburg and airplaned to the left. Gallbladder was grasped and retracted cephalad. The cystic duct and cystic artery were dissected out in the usual sterile manner, using electro Bovie cautery and [place] grasper. Two clips were placed proximal and 1 distal on both the cystic duct and cystic artery. The gallbladder was removed from the gallbladder fossa, placed in an Endo Catch bag. Small little bleeding point of the liver was cauterized and hemostatic agent was placed, including a Surgicel powder. This was noted to be dry and hemostatic. Gallbladder was removed with Endo Catch bag and removed from the epigastric port. The pneumoperitoneum was removed. The ports were removed. The epigastric port was closed with a [id number] 0 Vicryl. 4-0 Monocryl subcuticular stitches including Mastisol and Steri-Strips were placed. The patient tolerated procedure well. No abdominal complications. All lap and instrument counts were correct at the end of the procedure. The patient was extubated and taken stable to PACU. MD SHIRAZ Hodge/patti/sanna , 01:05 PM , 01:15 PM [email or web address]
[2018-07-09] MEDS: Sodium Chloride 0.9% 2 ML Flush BID IV.FLUSH SCH ×2 (17:33→20:10)
[2018-07-09] MEDS: Sodium Chloride 0.9% 2 ML Flush PRN IV.FLUSH (20:06)
[2018-07-10] MEDS: Flecainide 100 MG Tablet PO SCH (04:04)
[2018-07-10] MEDS: Levothyroxine 75 MCG Tablet PO SCH (05:12)
[2018-07-10 06:20] LABS: Baso # (Auto) 0.1 th/mm3 (0.0-0.2); Baso % (Auto) 0.7 % (0.0-2.0); Eos # (Auto) 0.1 th/mm3 (0.0-0.4); Eos % (Auto) 0.6 % (0.0-4.0); Hematocrit 34.3 % (35.0-46.0); Hemoglobin 11.4 gm/dL (11.6-15.3); Lymph # (Auto) 0.9 th/mm3 (1.0-4.8); Lymph % (Auto) 8.2 % (9.0-44.0); Mean Corpuscular HGB Conc 33.3 % (32.0-36.0); Mean Corpuscular Hemoglobin 31.6 pg (27.0-34.0); Mean Platelet Volume 8.6 fL (7.0-11.0); Mono % (Auto) 9.2 % (0.0-8.0); Neut # (Auto) 8.7 th/mm3 (1.8-7.7); Neut % (Auto) 81.3 % (16.0-70.0); Platelet Count 283 th/mm3 (150-450); Red Blood Count 3.61 mil/mm3 (4.00-5.30); Red Cell Distribution Width 14.2 % (11.6-17.2); White Blood Count 10.7 th/mm3 (4.0-11.0)
[2018-07-10] MEDS: Morphine Inj 4 MG/ML Vial IV.PUSH PRN (06:20)
[2018-07-10] MEDS: Sodium Chloride 0.9% 2 ML Flush PRN IV.FLUSH (06:21)
[2018-07-10 06:42] LABS: Albumin 3.1 g/dL (3.4-5.0); Calcium 8.6 mg/dL (8.5-10.1); Carbon Dioxide 21.7 meq/L (21.0-32.0); Magnesium 1.8 mg/dL (1.5-2.5); Phosphorus 3.5 mg/dL (2.5-4.9); Potassium 4.1 meq/L (3.5-5.1)
[2018-07-10 06:45] LABS: Total Protein 6.9 g/dL (6.4-8.2)
--- NOTE | 2018-07-10 08:09 | P.PNGS ---
Subjective Patient reports: feels better, flatus, no bowel movement Physical Exam Vital signs: Vital Signs 07/09/18 08:59 07/09/18 09:00 07/09/18 09:11 Temperature 96.3 F L 96.3 F L Pulse Rate 91 H Respiratory Rate 12 Blood Pressure 153/95 H Pulse Oximetry 92 L 96 07/09/18 09:15 07/09/18 09:30 07/09/18 09:45 Temperature Pulse Rate 99 H 86 95 H Respiratory Rate 28 H 18 22 Blood Pressure 168/90 H 157/91 H 169/99 H Pulse Oximetry 94 L 93 L 93 L 07/09/18 10:00 07/09/18 10:15 07/09/18 10:56 Temperature 97.6 F 97.6 F 97.6 F Pulse Rate 97 H 95 H 88 Respiratory Rate 19 22 20 Blood Pressure 178/103 H 165/86 H 166/109 H Pulse Oximetry 93 L 93 L 95 07/09/18 10:58 07/09/18 12:00 07/09/18 16:00 Temperature 97.9 F 97.4 F L Pulse Rate 88 86 Respiratory Rate 18 17 17 Blood Pressure 136/68 147/104 H Pulse Oximetry 97 97 07/09/18 17:23 07/09/18 19:33 07/09/18 20:06 Temperature 98.2 F Pulse Rate 88 79 Respiratory Rate 16 Blood Pressure 118/82 Pulse Oximetry 97 94 L 07/09/18 23:14 07/10/18 00:15 07/10/18 03:56 Temperature 97.6 F Pulse Rate 89 85 70 Respiratory Rate 16 Blood Pressure 128/85 Pulse Oximetry 94 L 07/10/18 04:00 Temperature 97.4 F L Pulse Rate 84 Respiratory Rate 16 Blood Pressure 136/77 Pulse Oximetry 93 L Intake & Output 07/09/18 07/10/18 07/10/18 18:59 06:59 18:59 Intake Total 2520 / 2520 200 / 200 Output Total 160 / 160 500 / 500 Balance 2360 / 2360 -300 / -300 Weight 89.4 kg Intake: IV 800 / 800 200 / 200 LR 1000 mL Inj 1,000 ML @ 42 500 / 500 mls/hr IV.CONT .[id number] [facility] Rx# :[id number] Levaquin 500 mg Premix Inj 500 100 / 100 mg In 100 ml @ 100 mls/hr IV. SIG Q24H [facility] Rx#:[id number] Flagyl 500 MG Inj 100 ML @ 100 200 / 200 200 / 200 mls/hr IV.SIG Q6H [facility] Rx#: [id number] Oral 720 / 720 Anesthesia Amount 1000 / 1000 Output: Urine 0 / 0 Estimated Blood Loss 40 / 40 Urine Amount (Catheter) 120 / 120 500 / 500 Straight 120 / 120 500 / 500 Other: # Voids 2 # Bowel Movements 0 - Routine Abdominal Exam Present: soft (incisional tenderness, incisions c/d/i) - Urinary Catheter Management Straight Cath placed during this visit: no Results - Labs 07/10/18 05:12 07/10/18 05:12 Laboratory Results - last 24 hr 07/10/18 07/10/18 05:12 05:12 WBC 10.7 RBC 3.61 L Hgb 11.4 L Hct 34.3 L MCV 95.0 MCH 31.6 MCHC 33.3 RDW 14.2 Plt Count 283 MPV 8.6 Neut % (Auto) 81.3 H Lymph % (Auto) 8.2 L [place] % (Auto) 9.2 H Eos % (Auto) 0.6 Baso % (Auto) 0.7 Neut # (Auto) 8.7 H Lymph # (Auto) 0.9 L [place] # (Auto) 1.0 H Eos # (Auto) 0.1 Baso # (Auto) 0.1 WBC Differential . Differential Comment Auto diff final Sodium 140 Potassium 4.1 Chloride 109 H Carbon Dioxide 21.7 Anion Gap 9 BUN 25 H Creatinine 1.33 H Estimated GFR 39 L Random Glucose 105 Calcium 8.6 Phosphorus 3.5 Magnesium 1.8 Total Bilirubin 0.3 Direct Bilirubin 0.1 Indirect Bilirubin 0.2 AST 37 ALT 48 Alkaline Phosphatase 83 Total Protein 6.9 Albumin 3.1 L - Imaging Imaging: ITS Impressions Head CT 07/06/18 08:33 CONCLUSION: 1. Age-related changes of the brain without evidence of acute abnormality. There is extensive atherosclerosis identified within the vertebral arteries. . Chest X-Ray 07/06/18 08:36 CONCLUSION: Negative examination. Gallbladder Ultrasound 07/06/18 08:48 CONCLUSION: 1. Abnormal appearance of the gallbladder with wall thickening, pericholecystic fluid. No evidence of stones. Concern is for possible acalculous cholecystitis. Assessment and Plan - Plan acute cholecystitis, A fib on eliquis POD 1 Lap morris PLAN ok to d/c home cardio diet oob po pain control ok start eliquis 2-3 days
[2018-07-10 09:02] VITALS: BP 123/74; RESP 18; TEMP 97.7
[2018-07-10] MEDS: Sodium Chloride 0.9% 2 ML Flush BID IV.FLUSH SCH (09:13)
[2018-07-10] MEDS: Metoprolol Tartrate 25 MG Tablet PO SCH ×2 (09:13→12:15)
[2018-07-10] MEDS: Senna/Docusate Sodium 8.6/50 MG Tablet PO SCH (09:13)
[2018-07-10] MEDS: Levofloxacin 500 mg Premix Inj 500 MG/100 ML PIGGYBACK IV.SIG SCH (09:14)
--- NOTE | 2018-07-10 10:13 | P.DS ---
Date of admission: 07/06/18 10:25 Primary care physician: Prasanna Snyder MD Attending physician on discharge: Nik Kelly Anticipated date of discharge: 07/10/18 Brief History from admission: This is 78 year old female with a history of recent A. fib on Eliquis, hypertension, hyperlipidemia, hypothyroidism, depression and cervical cancer status post surgery. She presents to the emergency room complaining of abdominal pain for the past 2 weeks. She describes an intermittent exertional upper abdominal sharp pain associated with shortness of breath, dizziness, nausea and generalized weakness. She was evaluated by her dermatology physician and was found to have A. fib and was started on Eliquis, metoprolol and flecainide. Underwent echocardiogram which was reportedly unremarkable. Patient was told she might need stress test and cardioversion. Symptoms persisted prompting ER visit. Ultrasound shows abnormal appearance of the gallbladder with wall thickening and pericholecystic fluid. Head CT without acute findings. Chest x- ray independently reviewed with no acute cardiopulmonary disease. EKG independently reviewed with atrial fibrillation with controlled ventricular response. Patient update on day of discharge: 78 yo female with history of atrial fibrillation admitted for RUQ pain initially somewhat suspicious for OK but found to be due to cholecystitis. General surgery was consulted who performed laparoscopic cholecystectomy on . At time of discharge she has been cleared by the surgical team. Today she reports feeling well, no abdominal pain, CP, or SOB. DS: Diagnosis - Discharge Diagnosis (1) Acute acalculous cholecystitis Status: Acute DS: Summary Hospital Course: 78 yo female with history of atrial fibrillation admitted for RUQ pain initially somewhat suspicious for OK but found to be due to cholecystitis. General surgery was consulted who performed laparoscopic cholecystectomy on . At time of discharge she has been cleared by the surgical team. During this hospitalization cardiology was consulted and increased her dose of metoprolol to achieve better HR and BP control. She tolerated this change well and HR/BP remained within normal limits thereafter. She is to follow up with her dermatology physician as an outpatient. - Time Spent with Patient Total time spent providing and/or coordinating discharge services: Less than 30 minutes - Quality: VTE Deep Vein Thrombosis/Pulmonary Embolism Present on Admission: No Exam Vital signs: Vital Signs 07/09/18 10:15 07/09/18 10:56 07/09/18 10:58 Temperature 97.6 F 97.6 F Pulse Rate 95 H 88 Respiratory Rate 22 20 18 Blood Pressure 165/86 H 166/109 H Pulse Oximetry 93 L 95 07/09/18 12:00 07/09/18 16:00 07/09/18 17:23 Temperature 97.9 F 97.4 F L Pulse Rate 88 86 Respiratory Rate 17 17 Blood Pressure 136/68 147/104 H Pulse Oximetry 97 97 97 07/09/18 19:33 07/09/18 20:06 07/09/18 23:14 Temperature 98.2 F 97.6 F Pulse Rate 88 79 89 Respiratory Rate 16 16 Blood Pressure 118/82 128/85 Pulse Oximetry 94 L 94 L 07/10/18 00:15 07/10/18 03:56 07/10/18 04:00 Temperature 97.4 F L Pulse Rate 85 70 84 Respiratory Rate 16 Blood Pressure 136/77 Pulse Oximetry 93 L 07/10/18 08:00 Temperature 97.7 F Pulse Rate 89 Respiratory Rate 18 Blood Pressure 123/74 Pulse Oximetry 93 L Intake & Output 07/09/18 07/10/18 07/10/18 18:59 06:59 18:59 Intake Total 2520 / 2520 200 / 200 50 / 50 Output Total 160 / 160 500 / 500 Balance 2360 / 2360 -300 / -300 50 / 50 Weight 89.4 kg Intake: IV 800 / 800 200 / 200 50 / 50 LR 1000 mL Inj 1,000 ML @ 42 500 / 500 mls/hr IV.CONT .[id number] [facility] Rx# :[id number] Levaquin 500 mg Premix Inj 500 100 / 100 50 / 50 mg In 100 ml @ 100 mls/hr IV. SIG Q24H [facility] Rx#:[id number] Flagyl 500 MG Inj 100 ML @ 100 200 / 200 200 / 200 mls/hr IV.SIG Q6H [facility] Rx#: [id number] Oral 720 / 720 Anesthesia Amount 1000 / 1000 Output: Urine 0 / 0 Estimated Blood Loss 40 / 40 Urine Amount (Catheter) 120 / 120 500 / 500 Straight 120 / 120 500 / 500 Other: # Voids 2 # Bowel Movements 0 - Constitutional no acute distress, average body habitus - Routine HEENT Exam Head: Present: normocephalic, atraumatic ENT: Present: mucous membranes moist - Routine Respiratory Exam Present: CTA bilaterally. Absent: accessory muscle use, wheezes, crackles - Routine Cardiovascular Exam Present: S1, S2, irregularly irregular. Absent: murmur, gallop - Routine Abdominal Exam Present: soft, surgical scars (c/d/i laparoscopic sites x3). Absent: tenderness , distended - Routine Extremities Exam Absent: cyanosis - Routine Skin Exam Absent: rash - Routine Neurological Exam Present: alert Results Procedures completed during hospitalization: Laparoscopic cholecystectomy - 07/09/18 Pending studies at discharge: Pending at discharge 07/09/18 10:52 Surgical [PTH] Routine Labs on day of discharge: Labs from last 24 hours 07/10/18 07/10/18 05:12 05:12 WBC 10.7 RBC 3.61 L Hgb 11.4 L Hct 34.3 L MCV 95.0 MCH 31.6 MCHC 33.3 RDW 14.2 Plt Count 283 MPV 8.6 Neut % (Auto) 81.3 H Lymph % (Auto) 8.2 L Nobles % (Auto) 9.2 H Eos % (Auto) 0.6 Baso % (Auto) 0.7 Neut # (Auto) 8.7 H Lymph # (Auto) 0.9 L Nobles # (Auto) 1.0 H Eos # (Auto) 0.1 Baso # (Auto) 0.1 WBC Differential . Differential Comment Auto diff final Sodium 140 Potassium 4.1 Chloride 109 H Carbon Dioxide 21.7 Anion Gap 9 BUN 25 H Creatinine 1.33 H Estimated GFR 39 L Random Glucose 105 Calcium 8.6 Phosphorus 3.5 Magnesium 1.8 Total Bilirubin 0.3 Direct Bilirubin 0.1 Indirect Bilirubin 0.2 AST 37 ALT 48 Alkaline Phosphatase 83 Total Protein 6.9 Albumin 3.1 L - Impressions ITS Impressions Head CT 07/06/18 08:33 CONCLUSION: 1. Age-related changes of the brain without evidence of acute abnormality. There is extensive atherosclerosis identified within the vertebral arteries. . Chest X-Ray 07/06/18 08:36 CONCLUSION: Negative examination. Gallbladder Ultrasound 07/06/18 08:48 CONCLUSION: 1. Abnormal appearance of the gallbladder with wall thickening, pericholecystic fluid. No evidence of stones. Concern is for possible acalculous cholecystitis. Discharge Plan - Discharge Disposition Patient Disposition: 01 Discharge Home - Discharge Condition Condition: Stable - Discharge Order Discharge Orders: Discharge Order (Routine); Ordered 07/10/18 Ordered By: Nik Kelly - Discharge Details Anticipated Discharge Date: 07/10/18 - Physicians Team Primary Care Provider: Prasanna Snyder Attending Provider: Nik Kelly Other Providers: Rocky Hopson MD ; Navarro Sharpe DO ; Surgeons,[facility]
[2018-07-10 10:49] VITALS: O2SAT 95
[2018-07-10 16:27] VITALS: PULSE 82
== END 2018-07-10 12:07 | disposition home health service (06) ==
LOC: NEDA 08:20 → NEPC 08:20 → N04 12:56
PROVIDERS: ADMIT Family Medicine; ATTEND Family Medicine